=== PATIENT | female | born 1995 | race Caucasian/White ===

== ENCOUNTER 2016-06-13 09:32 | Inpatient (IN) | payer OTHER ==
[2016-06-13 10:25] VITALS: BMI 17.3
--- NOTE | 2016-06-13 11:23 | HP ---
COWS - Scale Resting Pulse: 1= VT 81-100 Sweatin= Chills/Flushing Restless Observation: 3= Extraneous Movement Pupil Size: 2= Moderately Dilated Bone or Joint Aches: 4=Acute Joint/Muscle Pain Runny Nose/ Eye Tearin= Nasal Congestion GI Upset > 30mins: 1= Stomach Cramp Tremor Observation: 2= Slight Tremor Visible Yawning Observation: 0= None Anxiety or Irritability: 2=Irritable/Anxious Goose Flesh Skin: 0=Smooth Skin COWS Score: 17 Admission ROS S - HPI Chief Complaint: DETOX TX FOR HEROIN DEPENDENCE Allergies/Adverse Reactions: Allergies Allergy/AdvReac Type Severity Reaction Status Date / Time No Known Allergies Allergy Verified 06/13/16 10:35 History of Present Illness: 20 Y/O FEMALE WITH A HX OF HEROIN XANAX AND COCAINE DEPENDENCE SEEKING DETOX TX. BENZO(-) TOXICOLOGY TODAY. Exam Limitations: No Limitations - Ebola screening Have you traveled outside of the country in the last 21 days: No Have you had contact with anyone from an Ebola affected area: No Have you been sick,other than usual withdrawal symptoms: No - Review of Systems Constitutional: Chills, Loss of Appetite, Night Sweats, Changes in sleep, Unintentional Wgt. Loss EENT: reports: Blurred Vision (WEARS GLASSES), Tearing, Nose Congestion Respiratory: reports: No Symptoms reported Cardiac: reports: Lightheadedness, Chest Tightness GI: reports: Constipated, Diarrhea, Nausea, Poor Appetite, Poor Fluid Intake, Vomiting, Abdominal cramping : reports: Burning, Dysuria Musculoskeletal: reports: Back Pain, Joint Pain, Muscle Pain Integumentary: reports: Bruising (IVD INJ SITES ON BOT ELBOWS) Neuro: reports: Headache, Numbness, Seizure (IN THE PAST), Tingling, Tremors Endocrine: reports: No Symptoms Reported Hematology: reports: Anemia (IN THE PAST) Psychiatric: reports: Orientated x3, Anxious (AND PANIC DISORDER), Depressed Other Systems: Reviewed and Negative Patient History - Patient Medical History Hx Anemia: Yes (IN THE PAST) Hx Asthma: No Hx Chronic Obstructive Pulmonary Disease (COPD): No Hx Cancer: No Hx Cardiac Disorders: No Hx Congestive Heart Failure: No Hx Hypertension: No Hx Hypercholesterolemia: No Hx Pacemaker: No HX Cerebrovascular Accident: No Hx Seizures: Yes (drug related seizure once on 12/2015) Hx Dementia: No Hx Diabetes: No Hx Gastrointestinal Disorders: No Hx Liver Disease: No Hx Genitourinary Disorders: No Hx Sexually Transmitted Disorders: No Hx Renal Disease (ESRD): No Hx Thyroid Disease: No Hx Human Immunodeficiency Virus (HIV): No (NEGATIVE HX) Hx Hepatitis C: No Hx Depression: Yes Hx Suicide Attempt: No (DENIES) Hx Bipolar Disorder: No Hx Schizophrenia: No - Patient Surgical History Past Surgical History: Yes Hx Neurologic Surgery: No Hx Cataract Extraction: No Hx Cardiac Surgery: No Hx Lung Surgery: No Hx Breast Surgery: No Hx Breast Biopsy: No Hx Abdominal Surgery: No Hx Appendectomy: No Hx Cholecystectomy: No Hx Genitourinary Surgery: No Hx Section: No Hx Orthopedic Surgery: No Other Surgical History: bilateral inguinal hernia repair at age 7 Anesthesia Reaction: No - PPD History Previous Implant?: Yes Documented Results: Negative w/proof Implanted On Prior [facility] Admission?: Yes Date: 01/06/16 Results: 0 mm PPD to be Administered?: Yes - Reproductive History Patient is a Female of Child Bearing Age (11 -55 yrs old): Yes Last Menstrual Period: 02/21/16 LMP comment: IRREGULAR PERIODS DUE TO DRUG USE Patient : No - Smoking Cessation Smoking history: Current every day smoker Have you smoked in the past 12 months: Yes Aproximately how many cigarettes per day: 10 Cigars Per Day: 0 Hx Chewing Tobacco Use: No Initiated information on smoking cessation: Yes 'Breaking Loose' booklet given: 06/13/16 - Substance & Tx. History Hx Alcohol Use: No (DENIES) Hx Substance Use: Yes (HEROIN/XANAX/COCAINE) Substance Use Type: Cocaine, Heroin, Tranquilizers Hx Substance Use Treatment: Yes ([facility]-DETOX) - Substances Abused Heroin Route: Injection Frequency: Daily Amount used: 15-20 bags Age of first use: 18 Date of Last Use: 06/13/16 Crack Route: Smoking Frequency: Daily Amount used: $20-30 Age of first use: 20 Date of Last Use: 06/12/16 Xanax Route: Oral Frequency: 3-6 times per week Amount used: 4-6 mg. Age of first use: 19 Date of Last Use: 06/10/16 Family Disease History - Family Disease History Family Disease History: Other: Grandparent (GF-HIGH CHOLESTEROL) Admission Physical Exam [facility] - Vital Signs Vital Signs: Vital Signs - 24 hr 06/13/16 10:23 Temperature 96.8 F L Pulse Rate 95 H Respiratory 20 Rate Blood Pressure 95/64 - Physical General Appearance: Yes: Moderate Distress, Thin, Anxious HEENTM: Yes: EOMI, Normocephalic, SYMONE, Pharynx Normal, Nasal Congestion, Rhinorrhea Respiratory: Yes: Chest Non-Tender, Lungs Clear, Normal Breath Sounds, No Respiratory Distress Neck: Yes: Supple, Trachea in good position Breast: Yes: Breast Exam Deferred Cardiology: Yes: Regular Rhythm, Regular Rate, S1, S2 Abdominal: Yes: Normal Bowel Sounds, Non Tender, Soft Genitourinary: Yes: Other (N/C) Back: Yes: Within Normal Limits Musculoskeletal: Yes: full range of Motion, Gait Steady Extremities: Yes: Normal Range of Motion, Non-Tender Neurological: Yes: information broker II-XII NML intact, Fully Oriented, Alert, Motor Strength 5/5 Integumentary: Yes: Dry, Warm, Track [place] (BOTH ELBOWS WITH RECENT IVD INJ ALEMAN-- NO SWELLINGS) Lymphatic: Yes: Within Normal Limits - Diagnostic (1) Opioid dependence with withdrawal Current Visit: Yes Status: Acute (2) Uncomplicated sedative, hypnotic or anxiolytic withdrawal Current Visit: Yes Status: Suspected Comment: TOXICOLOGY NEGATIVE (3) Cocaine dependence, uncomplicated Current Visit: Yes Status: Acute (4) History of seizure Current Visit: No Status: Suspected (5) History of anemia Current Visit: Yes Status: Suspected Cleared for Admission [facility] - Detox or Rehab [facility] Level of Care: Medically Managed Detox Regimen/Protocol: Methadone [facility] Breath Alcohol Content Breath Alcohol Content: 0 Urine Pregancy Test - Result Urine Test Results: Negative- NO Line Present Urine Drug Screen - Results Drug Screen Negative: No Urine Drug Screen Results: KAMRAN-Cocaine, OPI-Opiates
[2016-06-13] MEDS ORDERED: MENTHOL/PHENOL 1 EACH UD MM PRN (11:35)
[2016-06-13] MEDS ORDERED: MAGNESIUM CITRATE 300 ML BOTTLE PO PRN (11:35)
[2016-06-13] MEDS ORDERED: P-EPHED 60MG/TRIPROLIDI 2.5MG TABLET PO PRN (11:35)
[2016-06-13] MEDS ORDERED: guaiFENesin/D-METHORPHAN HB 10 ML UNIT-DOSE CUPS PO PRN (11:35)
[2016-06-13] MEDS ORDERED: MAG HYDROX/AL HYDROX/SIMETH 30 ML UNIT-DOSE CUP PO PRN (11:35)
[2016-06-13] MEDS ORDERED: LOPERAMIDE HCL 2 MG CAPSULE PO PRN (11:35)
[2016-06-13] MEDS ORDERED: METHADONE HCL 10 MG TABLET (FOR DETOX USE ONLY) PO ONE ×2 (14:11→23:00)
--- NOTE | 2016-06-13 14:20 | CONSULT ---
[facility] Psychiatric Consult - Data Date of interview: 06/13/16 Admission source: [facility] Identifying data: This is 20 years old female with no psychiatric hospitalization history intoxicated with;. Heroin, Crack, Xanax, Nicotine Substance Abuse History: - Smoking Cessation. Smoking history: Current every day smoker. Have you smoked in the past 12 months: Yes. Aproximately how many cigarettes per day: 10. Cigars Per Day: 0. Hx Chewing Tobacco Use: No. Initiated information on smoking cessation: Yes. 'Breaking Loose' booklet given : 06/13/16. - Substance & Tx. History. Hx Alcohol Use: No (DENIES). Hx Substance Use: Yes (HEROIN/XANAX/COCAINE). Substance Use Type: Cocaine, Heroin , Tranquilizers. Hx Substance Use Treatment: Yes ([facility]DETOX). - Substances Abused. Heroin. Route: Injection. Frequency: Daily. Amount used: 15-20 bags. Age of first use: 18. Date of Last Use: 06/13/16. Crack. Route: Smoking. Frequency: Daily. Amount used: $20-30. Age of first use: 20. Date of Last Use: 06/12/16. Xanax. Route: Oral. Frequency: 3-6 times per week. Amount used: 4-6 mg. Age of first use: 19. Date of Last Use: 06/10/16 Medical History: Seizure history Psychiatric History: Patient reports history of anxiety, reports traking prior to admission: Gabapentin 600mg po tid with good response, reports insomnia a s well Physical/Sexual Abuse/Trauma History: Denies Additional Comment: Gabapentin 600mg po tid. Vistaril 50mg po prn q4 for anxiety Mental Status Exam - Mental Status Exam Alert and Oriented to: Person Cognitive Function: Fair Patient Appearance: Unkempt Mood: Anxious Affect: Mood Congruent Patient Behavior: Cooperative Speech Pattern: Appropriate Voice Loudness: Normal Thought Process: Goal Oriented Thought Disorder: Being Controlled Hallucinations: Denies Suicidal Ideation: Denies Homicidal Ideation: Denies Insight/Judgement: Fair Sleep: Difficulty falling asleep Appetite: Weight loss Muscle strength/Tone: Normal Gait/Station: Normal Additional Comments: Gabapentin 600mg po tid. Vistaril 50mg po prn q4 for anxiety Psychiatric Findings - Problem List ([place] 1, 2,3) (1) Cocaine dependence, uncomplicated Current Visit: Yes Status: Acute (2) Opioid dependence with withdrawal Current Visit: Yes Status: Acute (3) Anxiety and depression Current Visit: No Status: Chronic (4) MDD (major depressive disorder) Current Visit: No Status: Chronic Comment: By history. (5) Panic disorder Current Visit: No Status: Chronic Comment: By history. - Initial Treatment Plan Initial Treatment Plan: Gabapentin 600mg po tid. Vistaril 50mg po prn q4 for anxiety
[2016-06-13] MEDS: diazePAM 5 MG TABLET PO PRN ×2 (14:32→22:23)
[2016-06-13] MEDS: BACITRACIN 0.9 GM PACKET TP SCH ×2 (14:32→22:22)
[2016-06-13] MEDS: NICOTINE 14 MG/24 HOURS TOPICAL PATCH TD SCH (14:32)
[2016-06-13] MEDS: GABAPENTIN 300 MG CAPSULE (FP) PO SCH ×2 (14:36→22:22)
[2016-06-13 18:44] LABS: HIV 1 & 2 AB NEGATIVE; HIV 1 AGp24 NEGATIVE
[2016-06-13 19:17] LABS: URINE APPEARANCE TURBID; URINE BILIRUBIN NEGATIVE (NEGATIVE); URINE BLOOD NEGATIVE (NEGATIVE); URINE COLOR YELLOW; URINE GLUCOSE (UA) NEGATIVE (NEGATIVE); URINE KETONE TRACE (NEGATIVE); URINE NITRITE NEGATIVE (NEGATIVE); URINE PROTEIN NEGATIVE (NEGATIVE); URINE UROBILINOGEN NEGATIVE E.U./dl (0.2-1.0)
[2016-06-13 19:20] LABS: URINE LEUK ESTERASE 2+ (NEGATIVE)
[2016-06-13] MEDS: hydrOXYzine PAMOATE 50 MG CAPSULE (FP) PO PRN (20:48)
[2016-06-13] MEDS: MAGNESIUM HYDROX 2400MG/30ML ORAL SUSPENSION 30 ML CUP PO PRN (20:48)
[2016-06-13] MEDS: diphenhydrAMINE HCL 50 MG CAPSULE PO PRN (22:22)
[2016-06-13] MEDS: DOXEPIN HCL 50 MG CAPSULE PO SCH (22:23)
[2016-06-13] MEDS: THIAMINE HCL 100 MG TABLET (FP) PO SCH (22:23)
[2016-06-14] MEDS: GABAPENTIN 300 MG CAPSULE (FP) PO SCH ×3 (05:37→22:33)
[2016-06-14] MEDS: diazePAM 5 MG TABLET PO PRN ×2 (05:38→15:07)
[2016-06-14 09:44] LABS: MCH 26.7 pg (25.7-33.7); MCHC 32.8 g/dl (32.0-36.0); MEAN CELL VOLUME 81.3 fl (80-96); MEAN PLT VOLUME 8.1 fl (7.5-11.1); PLATELET COUNT 242 K/MM3 (134-434); RDW 13.6 % (11.6-15.6); WHITE BLOOD COUNT 6.2 K/mm3 (4.0-10.0)
[2016-06-14] MEDS ORDERED: METHADONE HCL 10 MG TABLET (FOR DETOX USE ONLY) PO ONE (10:00)
[2016-06-14] MEDS: BACITRACIN 0.9 GM PACKET TP SCH ×2 (10:29→22:32)
[2016-06-14] MEDS: PRENATAL VITAMINS W/ FOLIC ACID TABLET (FP) PO SCH (10:29)
[2016-06-14] MEDS: NICOTINE 14 MG/24 HOURS TOPICAL PATCH TD SCH (10:30)
[2016-06-14 10:32] LABS: ALBUMIN 3.8 g/dl (3.4-5.0); ALK PHOS 72 U/L (45-117); ANION GAP 10 (8-16); BILIRUBIN,TOTAL 0.5 mg/dL (0.2-1.0); CALCIUM 9.4 mg/dL (8.5-10.1); CO2 29 mmol/L (21-32); CREATININE 0.8 mg/dL (0.55-1.02); GLUCOSE,RANDOM 86 mg/dL (74-106); SGOT/AST 16 U/L (15-37); SGPT/ALT 21 U/L (12-78); TOT PROT 7.3 g/dl (6.4-8.2)
[2016-06-14] MEDS: hydrOXYzine PAMOATE 50 MG CAPSULE (FP) PO PRN (10:32)
[2016-06-14] MEDS: NICOTINE POLACRILEX 2 MG GUM BUC PRN (10:32)
--- NOTE | 2016-06-14 10:53 | PN ---
S CIWA - CIWA Score Nausea/Vomitin Muscle Tremors: 2 Anxiety: 2 Agitation: 2 Paroxysmal Sweats: 3 Orientation: 0-Oriented Tacttile Disturbances: 2-Mild Itch/Numbness/Burn Auditory Disturbances: 0-None Visual Disturbances: 0-None Headache: 0-None Present CIWA-Ar Total Score: 13 S Progress Note (SOAP) Subjective: INTERRUPTED SLEEP, SWEATS, TIRED, CRAMPS, BODYACHES Objective: 06/14/16 10:52 Vital Signs Temperature 97.7 F 06/14/16 06:11 Pulse Rate 81 06/14/16 06:11 Respiratory Rate 16 06/14/16 06:11 Blood Pressure 110/60 06/14/16 06:11 O2 Sat by Pulse Oximetry (%) Laboratory Tests 06/13/16 06/13/16 06/14/16 12:00 15:00 06:00 WBC 6.2 RBC 4.70 Hgb 12.5 Hct 38.2 MCV 81.3 MCHC 32.8 RDW 13.6 D Plt Count 242 MPV 8.1 Sodium Potassium Chloride Carbon Dioxide Anion Gap BUN Creatinine Creat Clearance w eGFR Random Glucose Calcium Total Bilirubin AST ALT Alkaline Phosphatase Total Protein Albumin Urine Color Yellow Urine Appearance Turbid Urine pH 7.0 Ur Specific [place] 1.015 Urine Protein Negative Urine Glucose (UA) Negative Urine Ketones Trace H Urine Blood Negative Urine Nitrite Negative Urine Bilirubin Negative Urine Urobilinogen Negative Ur Leukocyte Esterase 2+ H HIV 1&2 Antibody Screen Negative HIV P24 Antigen Negative 06/14/16 06:00 WBC RBC Hgb Hct MCV MCHC RDW Plt Count MPV Sodium 142 Potassium 4.0 Chloride 103 Carbon Dioxide 29 Anion Gap 10 BUN 7 Creatinine 0.8 D Creat Clearance w eGFR > 60 Random Glucose 86 Calcium 9.4 Total Bilirubin 0.5 D AST 16 ALT 21 Alkaline Phosphatase 72 Total Protein 7.3 Albumin 3.8 Urine Color Urine Appearance Urine pH Ur Specific [place] Urine Protein Urine Glucose (UA) Urine Ketones Urine Blood Urine Nitrite Urine Bilirubin Urine Urobilinogen Ur Leukocyte Esterase HIV 1&2 Antibody Screen HIV P24 Antigen PT AOX3 IN NAD AMBULATING Assessment: 06/14/16 10:52 WITHDRAWAL SX;S . Plan: CONT. DETOX INCREASE FLUIDS FLEXERIL 10MG TID/PRN
--- NOTE | 2016-06-14 11:23 | EKG ---
Test Reason : Blood Pressure : / mmHG Vent. Rate : 074 BPM Atrial Rate : 074 BPM P-R Int : 130 ms QRS Dur : 086 ms QT Int : 390 ms P-R-T Axes : 022 080 039 degrees QTc Int : 432 ms NORMAL SINUS RHYTHM WITH SINUS ARRHYTHMIA NORMAL ECG NO PREVIOUS ECGS AVAILABLE Confirmed by KORY TAY, EDIE ([id number]) on 06/14/2016 11:22:47 AM Referred By: Confirmed By:EDIE HORN MD
[2016-06-14 14:48] LABS: URINE BACTERIA RARE /hpf (NEGATIVE)
[2016-06-14 14:49] LABS: URINE MUCUS RARE; YEAST MANY
[2016-06-14] MEDS: MAGNESIUM HYDROX 2400MG/30ML ORAL SUSPENSION 30 ML CUP PO PRN (15:08)
[2016-06-14] MEDS: DOXEPIN HCL 50 MG CAPSULE PO SCH (22:33)
[2016-06-14] MEDS: diphenhydrAMINE HCL 50 MG CAPSULE PO PRN (22:33)
[2016-06-14] MEDS: THIAMINE HCL 100 MG TABLET (FP) PO SCH (22:33)
[2016-06-15] MEDS: GABAPENTIN 300 MG CAPSULE (FP) PO SCH ×3 (05:29→22:08)
[2016-06-15] MEDS: diazePAM 5 MG TABLET PO PRN ×3 (05:30→22:09)
[2016-06-15] MEDS ORDERED: METHADONE HCL 5 MG TABLET (FOR DETOX USE ONLY) PO ONE (10:00)
[2016-06-15] MEDS ORDERED: SODIUM CHLORIDE NASAL SPRAY 44 ML BOTTLE NS PRN (10:18)
--- NOTE | 2016-06-15 10:27 | PN ---
[id number] [id number] Restless Observation: 0= Sits Still Pupil Size: 0= Normal to Room Light Bone or Joint Aches: 2= Severe Diffuse Aches Runny Nose/ Eye Tearin= Runny Nose/Eyes GI Upset > 30mins: 1= Stomach Cramp Tremor Observation of Outstretched Hands: 2= Slight Tremor Visible Yawning Observation: 1= 1-2x During Session Anxiety or Irritability: 2=Irritable/Anxious Goose Flesh Skin: 0=Smooth Skin COWS Score: 15 BHS Progress Note (SOAP) Subjective: tachycardia sweats interrupted sleep agitation nasal congestion dizzy no chest pain, no SOB Objective: 06/15/16 10:28 Vital Signs Temperature 98.0 F 06/15/16 10:00 Pulse Rate 105 H 06/15/16 10:00 Respiratory Rate 18 06/15/16 10:00 Blood Pressure 112/66 06/15/16 10:00 O2 Sat by Pulse Oximetry (%) Laboratory Tests 06/13/16 06/13/16 06/14/16 12:00 15:00 06:00 WBC 6.2 RBC 4.70 Hgb 12.5 Hct 38.2 MCV 81.3 MCHC 32.8 RDW 13.6 D Plt Count 242 MPV 8.1 Sodium Potassium Chloride Carbon Dioxide Anion Gap BUN Creatinine Creat Clearance w eGFR Random Glucose Calcium Total Bilirubin AST ALT Alkaline Phosphatase Total Protein Albumin Urine Color Yellow Urine Appearance Turbid Urine pH 7.0 Ur Specific [place] 1.015 Urine Protein Negative Urine Glucose (UA) Negative Urine Ketones Trace H Urine Blood Negative Urine Nitrite Negative Urine Bilirubin Negative Urine Urobilinogen Negative Ur Leukocyte Esterase 2+ H Ur Epithelial Cells Few Urine Bacteria Rare Urine Mucus Rare Urine Yeast Many RPR Titer HIV 1&2 Antibody Screen Negative HIV P24 Antigen Negative 06/14/16 06/14/16 06:00 06:00 WBC RBC Hgb Hct MCV MCHC RDW Plt Count MPV Sodium 142 Potassium 4.0 Chloride 103 Carbon Dioxide 29 Anion Gap 10 BUN 7 Creatinine 0.8 D Creat Clearance w eGFR > 60 Random Glucose 86 Calcium 9.4 Total Bilirubin 0.5 D AST 16 ALT 21 Alkaline Phosphatase 72 Total Protein 7.3 Albumin 3.8 Urine Color Urine Appearance Urine pH Ur Specific [place] Urine Protein Urine Glucose (UA) Urine Ketones Urine Blood Urine Nitrite Urine Bilirubin Urine Urobilinogen Ur Leukocyte Esterase Ur Epithelial Cells Urine Bacteria Urine Mucus Urine Yeast RPR Titer Nonreactive HIV 1&2 Antibody Screen HIV P24 Antigen awake/alert ambulating monitor HR EKG repeated Assessment: 06/15/16 10:32 withdrawals sx tachycardia EKG repeated result show sinus tachy otherwise Normal EKG. Plan: continue detox increase fluids monitor HR
[2016-06-15] MEDS ORDERED: cloNIDine HCL 0.1 MG TABLET PO ONE (10:37)
[2016-06-15] MEDS: BACITRACIN 0.9 GM PACKET TP SCH ×2 (10:51→22:08)
[2016-06-15] MEDS: PRENATAL VITAMINS W/ FOLIC ACID TABLET (FP) PO SCH (10:51)
[2016-06-15] MEDS: NICOTINE 14 MG/24 HOURS TOPICAL PATCH TD SCH (10:52)
[2016-06-15] MEDS: hydrOXYzine PAMOATE 50 MG CAPSULE (FP) PO PRN (13:50)
[2016-06-15] MEDS: NICOTINE POLACRILEX 2 MG GUM BUC PRN (13:52)
[2016-06-15] MEDS ORDERED: cloNIDine HCL 0.1 MG TABLET PO SCH (22:00)
[2016-06-15] MEDS: DOXEPIN HCL 50 MG CAPSULE PO SCH (22:08)
[2016-06-15] MEDS: THIAMINE HCL 100 MG TABLET (FP) PO SCH (22:08)
[2016-06-15] MEDS: IBUPROFEN 400 MG TABLET (FP) PO PRN (22:38)
[2016-06-15] MEDS: CYCLOBENZAPRINE HCL 10 MG TABLET (FP) PO PRN (22:38)
[2016-06-15] MEDS: diphenhydrAMINE HCL 50 MG CAPSULE PO PRN (22:38)
[2016-06-15] MEDS: ACETAMINOPHEN 325 MG TABLET (FP) PO PRN (23:12)
[2016-06-16] MEDS: diazePAM 5 MG TABLET PO PRN (04:59)
[2016-06-16] MEDS: CYCLOBENZAPRINE HCL 10 MG TABLET (FP) PO PRN ×2 (05:00→18:14)
[2016-06-16] MEDS: IBUPROFEN 400 MG TABLET (FP) PO PRN (05:00)
[2016-06-16] MEDS: GABAPENTIN 300 MG CAPSULE (FP) PO SCH (05:55)
[2016-06-16] MEDS: ACETAMINOPHEN 325 MG TABLET (FP) PO PRN (06:08)
[2016-06-16] MEDS: hydrOXYzine PAMOATE 50 MG CAPSULE (FP) PO PRN ×2 (06:08→18:14)
[2016-06-16] MEDS ORDERED: METHADONE HCL 5 MG TABLET (FOR DETOX USE ONLY) PO ONE (10:00)
--- NOTE | 2016-06-16 10:50 | PN ---
[facility] Progress Note (SOAP) Subjective: sweats irritable agitation I just want to be left alone Objective: 06/16/16 10:49 Vital Signs Temperature 97.9 F 06/16/16 10:37 Pulse Rate 110 H 06/16/16 10:37 Respiratory Rate 18 06/16/16 10:37 Blood Pressure 81/54 06/16/16 10:37 O2 Sat by Pulse Oximetry (%) awake/alert ambulating no acute distress Assessment: 06/16/16 10:50 withdrawal sx Plan: continue detox increase fluids
[2016-06-16] MEDS: BACITRACIN 0.9 GM PACKET TP SCH (11:13)
[2016-06-16] MEDS: PRENATAL VITAMINS W/ FOLIC ACID TABLET (FP) PO SCH (11:13)
[2016-06-16] MEDS: NICOTINE 14 MG/24 HOURS TOPICAL PATCH TD SCH (11:13)
--- NOTE | 2016-06-16 11:57 | PN ---
Psychiatric Progress Note Vital Signs: Vital Signs Period Temp Pulse Resp BP Sys/Peres Pulse Ox Last 24 Hr 96.8 F-97.9 F 97-110 16-20 81-112/54-72 Date of Session: 06/16/16 Chief Complaint:: As per nursing report patient is oversedated HPI: Patient found in bed, slow rate and low volume speech, did get her breakfast. Oriented to md and location, following orders Current Medications: Active Medications Generic Name Dose Route Start Last Admin Trade Name Freq PRN Reason Stop Dose Admin Acetaminophen 650 mg 06/13/16 11:35 06/16/16 06:08 Tylenol - PO 650 mg Q4H PRN Administration FEVER OR PAIN Al Hydroxide/Mg Hydroxide 30 ml 06/13/16 11:35 Mylanta Oral Suspension - PO Q6H PRN DYSPEPSIA Bacitracin 0.9 gm 06/13/16 12:49 06/16/16 11:13 Bacitracin - TP Not Given BID CAYDEN Cyclobenzaprine HCl 10 mg 06/14/16 10:54 06/16/16 05:00 Flexeril - PO 10 mg TID PRN Administration MUSCLE SPASMS Diazepam 10 mg 06/13/16 13:57 06/16/16 04:59 Valium - PO 06/16/16 13:56 10 mg Q4H PRN Administration WITHDRAWAL(CONT SUBST) Diphenhydramine HCl 50 mg 06/13/16 11:35 06/15/16 22:38 Benadryl - PO 50 mg HSMR1 PRN Administration INSOMNIA Doxepin HCl 50 mg 06/13/16 22:00 06/15/16 22:08 Sinequan - PO 50 mg HS CAYDEN Administration Eucalyptus/Menthol/Phenol/Sorbitol 1 each 06/13/16 11:35 Cepastat Lozenge - MM Q4H PRN SORE THROAT Gabapentin 300 mg 06/16/16 14:00 Neurontin - PO TID CAYDEN Guaifenesin 10 ml 06/13/16 11:35 Robitussin Dm - PO Q6H PRN COUGH Hydroxyzine Pamoate 50 mg 06/13/16 14:29 06/16/16 06:08 Vistaril - PO 50 mg Q4H PRN Administration FOR ITCHING Ibuprofen 400 mg 06/13/16 11:35 06/16/16 05:00 Motrin - PO 400 mg Q6H PRN Administration SEVERE PAIN Loperamide HCl 4 mg 06/13/16 11:35 Imodium - PO Q6H PRN DIARRHEA Magnesium Citrate 300 ml 06/13/16 11:35 Citroma - PO Q48H PRN CONSTIPATION Magnesium Hydroxide 30 ml 06/13/16 11:35 06/14/16 15:08 Milk Of Magnesia - PO 30 ml DAILY PRN Administration CONSTIPATION Methadone HCl 10 mg 06/17/16 10:00 Dolophine - PO 06/17/16 10:01 ONCE ONE Methadone HCl 5 mg 06/18/16 06:00 Dolophine - PO 06/18/16 06:01 ONCE@0600 ONE Nicotine 14 mg 06/13/16 14:00 06/16/16 11:13 Nicoderm Patch - TD Not Given DAILY CAYDEN Nicotine Polacrilex 2 mg 06/13/16 13:58 06/15/16 13:52 Nicorette Gum - BUC 2 mg Q2H PRN Administration NICOTINE REPLACEMENT RX Multivit/Folic Acid/Iron 1 tab 06/14/16 10:00 06/16/16 11:13 Vitamins (Sjr) - PO Not Given DAILY CAYDEN Pseudoephedrine/Triprolidine 1 combo 06/13/16 11:35 Actifed - PO TID PRN NASAL CONGESTION Sodium Chloride 2 spray 06/15/16 10:18 [place] Nasal [place] - NS TID PRN NASAL CONGESTION Thiamine HCl 100 mg 06/13/16 22:00 06/15/16 22:08 Vitamin B1 - PO 100 mg HS CAYDEN Administration Medication(s) Change(s): Gabapentin 600mg po tid to d/c. Start Gabapentin 300mg po tid Mental Status Exam - Mental Status Exam Alert and Oriented to: Person Cognitive Function: Fair Patient Appearance: Unkempt Mood: Sad Affect: Flat Patient Behavior: Sedated Speech Pattern: Delayed Voice Loudness: Moderately Soft/Quiet Thought Process: Circumstantial Thought Disorder: Being Controlled Hallucinations: Denies Suicidal Ideation: Denies Homicidal Ideation: Denies Insight/Judgement: Fair Sleep: Difficulty falling asleep Appetite: Weight loss Muscle strength/Tone: Moderate Hypotonicity Gait/Station: Shuffling Additional Comments: Gabapentin 300mg po tid Psychiatric Treatment Plan - Problem List (1) Cocaine dependence, uncomplicated Current Visit: Yes (2) Opioid dependence with withdrawal Current Visit: Yes (3) Anxiety and depression Current Visit: No (4) MDD (major depressive disorder) Current Visit: No Comment: By history. (5) Panic disorder Current Visit: No Comment: By history. Initial treatment plan: Gabapentin 300mg po tid
--- NOTE | 2016-06-16 12:50 | EKG ---
Test Reason : Blood Pressure : / mmHG Vent. Rate : 110 BPM Atrial Rate : 110 BPM P-R Int : 148 ms QRS Dur : 088 ms QT Int : 342 ms P-R-T Axes : 052 074 043 degrees QTc Int : 462 ms SINUS TACHYCARDIA CANNOT RULE OUT ANTERIOR INFARCT , AGE UNDETERMINED ABNORMAL ECG WHEN COMPARED WITH ECG OF 13-JUN-2016 12:34, VENT. RATE HAS INCREASED BY 36 BPM Confirmed by SALOMÓN TAY, MARIA A ([id number]) on 06/16/2016 12:50:34 PM Referred By: Confirmed By:MARIA A LORENZANA MD
[2016-06-16] MEDS ORDERED: GABAPENTIN 300 MG CAPSULE (FP) PO SCH (14:00)
[2016-06-16 17:45] VITALS: BP 97/64; PULSE 95; TEMP 95.5
--- NOTE | 2016-06-16 23:23 | PN ---
S Progress Note Note: INFORMED CLIENT SIGNED OUT AMA. NO LONGER WANTS TO CONTINUE TXMENT.SEEKING MORE METHADONE.
--- NOTE | 2016-06-16 23:26 | DS ---
[facility] Detox Discharge Summary Admission Date: 06/13/16 Discharge Date: 06/16/16 - History Present History: Cocaine Dependence, Opioid Dependence - Physical Exam Results Vital Signs: Vital Signs Temperature 95.5 F L 06/16/16 17:44 Pulse Rate 95 H 06/16/16 17:44 Respiratory Rate 18 06/16/16 17:44 Blood Pressure 97/64 06/16/16 17:44 O2 Sat by Pulse Oximetry (%) Pertinent Admission Physical Exam Findings: WITHDRAWAL SX'S - Medication Discharge Medications: Ambulatory Orders Doxepin HCl [Sinequan -] 50 mg PO HS #30 cap 06/13/16 Gabapentin [Neurontin -] 600 mg PO TID #90 cap 06/13/16 Hydroxyzine Pamoate [Vistaril -] 50 mg PO Q4H PRN #90 cap 06/13/16 - Diagnosis (1) Cocaine dependence, uncomplicated Status: Chronic (2) Opioid dependence with withdrawal Status: Chronic (3) Anxiety and depression Status: Chronic (4) MDD (major depressive disorder) Status: Chronic (5) Panic disorder Status: Chronic - AMA Did Patient Leave Against Medical Advice: Yes
[2016-06-17] MEDS ORDERED: METHADONE HCL 10 MG TABLET (FOR DETOX USE ONLY) PO ONE (10:00)
[2016-06-18] MEDS ORDERED: METHADONE HCL 5 MG TABLET (FOR DETOX USE ONLY) PO ONE (06:00)
== END 2016-06-16 21:30 | disposition left against medical advice (07) | DRG 770 ==
LOC: YASAS 09:32 → Y6N 12:45
PROVIDERS: ADMIT Internal Medicine Addiction Medicine; ATTEND Internal Medicine Addiction Medicine
PROC: HZ2ZZZZ Detoxification Services for Substance Abuse Treatment (ICD-10-PCS; principal; 2016-06-13)
DX: F11.23 Opioid dependence with withdrawal (principal); F14.20 Cocaine dependence, uncomplicated; F17.210 Nicotine dependence, cigarettes, uncomplicated; F41.8 Other specified anxiety disorders; F41.0 Panic disorder [episodic paroxysmal anxiety]; R00.0 Tachycardia, unspecified; Z86.69 Personal history of other diseases of the nervous system and sense organs; Z87.09 Personal history of other diseases of the respiratory system
CPT/HCPCS: 36415; 80053; 81003; 81015; 85027; 86593; 87389; 93005; 93010

== ENCOUNTER 2016-10-10 09:47 | Inpatient (IN) | payer OTHER ==
[2016-10-10 11:22] VITALS: BMI 17.7
[2016-10-10] MEDS ORDERED: guaiFENesin/D-METHORPHAN HB 10 ML UNIT-DOSE CUPS PO PRN (14:11)
[2016-10-10] MEDS ORDERED: MAGNESIUM CITRATE 300 ML BOTTLE PO PRN (14:11)
[2016-10-10] MEDS ORDERED: diphenhydrAMINE HCL 50 MG CAPSULE PO PRN (14:11)
[2016-10-10] MEDS ORDERED: IBUPROFEN 400 MG TABLET (FP) PO PRN (14:11)
[2016-10-10] MEDS ORDERED: hydrOXYzine PAMOATE 50 MG CAPSULE (FP) PO PRN (14:11)
[2016-10-10] MEDS ORDERED: ACETAMINOPHEN 325 MG TABLET (FP) PO PRN (14:11)
[2016-10-10] MEDS ORDERED: P-EPHED 60MG/TRIPROLIDI 2.5MG TABLET PO PRN (14:11)
[2016-10-10] MEDS ORDERED: NICOTINE POLACRILEX 2 MG GUM BC PRN (14:11)
[2016-10-10] MEDS ORDERED: MENTHOL/PHENOL 1 EACH UD MM PRN (14:11)
[2016-10-10] MEDS ORDERED: LOPERAMIDE HCL 2 MG CAPSULE PO PRN (14:11)
--- NOTE | 2016-10-10 14:11 | HP ---
COWS - Scale Resting Pulse: 2= [place] 101-120 Sweatin=Flushed/Facial Moisture Restless Observation: 1= Difficult to Sit Still Pupil Size: 1= Pupils >than Normal Bone or Joint Aches: 2= Severe Diffuse Aches Runny Nose/ Eye Tearin= Runny Nose/Eyes GI Upset > 30mins: 2= Nausea/Diarrhea Tremor Observation: 2= Slight Tremor Visible Yawning Observation: 1= 1-2x During Session Anxiety or Irritability: 2=Irritable/Anxious Goose Flesh Skin: 3=Piloerection COWS Score: 20 CIWA Score - CIWA Score Nausea/Vomitin Muscle Tremors: 4-Moderate,w/Arms Extend Anxiety: 4-Mod. Anxious/Guarded Agitation: 4-Moderately Restless Paroxysmal Sweats: 3 Orientation: 0-Oriented Tacttile Disturbances: 2-Mild Itch/Numbness/Burn Auditory Disturbances: 0-None Visual Disturbances: 0-None Headache: 2-Mild CIWA-Ar Total Score: 22 Admission ROS S - HPI Chief Complaint: heorin and benzodiazepine withdrjazzy sx would like inpatient detoxification with methadone and valium Allergies/Adverse Reactions: Allergies Allergy/AdvReac Type Severity Reaction Status Date / Time No Known Allergies Allergy Verified 10/10/16 12:29 History of Present Illness: 20 yo f with h/o opioid and benzodiazepine dependence, IDU, smoking crack cocaine daily, nicotine depenndence <0/day [facility], [facility], [facility]nao[facility], no h/o suicide attempts in past. no h/o seizures, no h/o DTS, no h/o intubation in past. reports withdrwal sx when she does nto used listed below in ROS. first started using heroin age 15, started marijuana and alcohol age 15 but not using them now. IDU x 9 months. no h/o OD reported. Exam Limitations: No Limitations - Ebola screening Have you traveled outside of the country in the last 21 days: No (N) Have you had contact with anyone from an Ebola affected area: No Have you been sick,other than usual withdrawal symptoms: No Do you have a fever: No - Review of Systems Constitutional: Chills, Diaphoresis, Unintentional Wgt. Loss EENT: reports: Nose Congestion Cardiac: reports: No Symptoms Reported GI: reports: Constipated, Nausea, Poor Appetite, Poor Fluid Intake, Indigestion , Abdominal cramping : reports: Dysuria, Discharge Musculoskeletal: reports: Back Pain, Joint Pain, Muscle Pain, Neck Pain ( withdrawal sx) Integumentary: reports: Flushing, Sweating Neuro: reports: Headache, Numbness, Paresthesia, Tingling, Tremors, Weakness Endocrine: reports: No Symptoms Reported Hematology: reports: No Symptoms Reported Psychiatric: reports: Judgement Intact, Mood/Affect Appropiate, Orientated x3, Anxious, Depressed Other Systems: Reviewed and Negative Patient History - Patient Medical History Hx Anemia: Yes (IN THE PAST) Hx Asthma: No Hx Chronic Obstructive Pulmonary Disease (COPD): No Hx Cancer: No Hx Cardiac Disorders: No Hx Congestive Heart Failure: No Hx Hypertension: No Hx Hypercholesterolemia: No Hx Pacemaker: No HX Cerebrovascular Accident: No Hx Seizures: No Hx Dementia: No Hx Diabetes: No Hx Gastrointestinal Disorders: No Hx Liver Disease: No Hx Genitourinary Disorders: No Hx Sexually Transmitted Disorders: No Hx Renal Disease (ESRD): No Hx Thyroid Disease: No Hx Human Immunodeficiency Virus (HIV): No (NEGATIVE HX) Hx Hepatitis C: No Hx Depression: Yes Hx Suicide Attempt: No Hx Bipolar Disorder: No Hx Schizophrenia: No - Patient Surgical History Past Surgical History: Yes Hx Neurologic Surgery: No Hx Cataract Extraction: No Hx Cardiac Surgery: No Hx Lung Surgery: No Hx Breast Surgery: No Hx Breast Biopsy: No Hx Abdominal Surgery: No Hx Appendectomy: No Hx Cholecystectomy: No Hx Genitourinary Surgery: No Hx Section: No Hx Orthopedic Surgery: No Other Surgical History: bilateral inguinal hernia repair at age 7 Anesthesia Reaction: No - PPD History Previous Implant?: Yes Documented Results: Negative w/proof Implanted On Prior [facility] Admission?: Yes Date: 01/06/16 Results: 0 mm - Reproductive History Patient is a Female of Child Bearing Age (11 -55 yrs old): Yes Last Menstrual Period: 09/10/16 Patient : No - Smoking Cessation Smoking history: Current every day smoker Have you smoked in the past 12 months: Yes Aproximately how many cigarettes per day: 10 If you are a former smoker, when did you quit?: 11 months ago Cigars Per Day: 0 Hx Chewing Tobacco Use: No Initiated information on smoking cessation: Yes 'Breaking Loose' booklet given: 10/10/16 - Substance & Tx. History Hx Alcohol Use: No Hx Substance Use: Yes Substance Use Type: Heroin, Prescribed, Tranquilizers Hx Substance Use Treatment: Yes ([facility] detox and rehab in past) - Substances Abused Heroin Route: Injection Frequency: Daily Amount used: 8 BAGS Age of first use: 18 Date of Last Use: 10/10/16 Crack Route: Smoking Frequency: Daily Amount used: $5 Age of first use: 20 Date of Last Use: 10/09/16 Benzodiazepine (Klonopin) Route: Oral Frequency: Daily Amount used: 4mg Age of first use: 19 Date of Last Use: 10/10/16 Family Disease History - Family Disease History Family Disease History: Other: Grandparent (GF-HIGH CHOLESTEROL), Father ( polysubstance use), Mother (polysubstance use) Admission Physical Exam S - Vital Signs Vital Signs: Vital Signs - 24 hr 10/10/16 11:20 Temperature 97.2 F L Pulse Rate 112 H Respiratory 16 Rate Blood Pressure 100/67 - Physical General Appearance: Yes: Nourished, Appropriately Dressed, Disheveled, Mild Distress, Thin, Tremorous, Irritable, Sweating, Anxious HEENTM: Yes: EOMI, Hearing grossly Normal, Normal ENT Inspection, Normocephalic , Normal Voice, SYMONE, Pharynx Normal, Nasal Congestion, Rhinorrhea Respiratory: Yes: Within Normal Limits, Chest Non-Tender, Lungs Clear, Normal Breath Sounds, No Respiratory Distress, No Accessory Muscle Use Neck: Yes: Within Normal Limits, No masses,lesions,Nodules, Supple, Trachea in good position Breast: Yes: Breast Exam Deferred Cardiology: Yes: Within Normal Limits, Regular Rhythm, Regular Rate, S1, S2 Abdominal: Yes: Normal Bowel Sounds, Non Tender, Flat, Soft, Increased Bowel Sounds Genitourinary: Yes: Within Normal Limits Back: Yes: Within Normal Limits, Normal Inspection Musculoskeletal: Yes: full range of Motion, Gait Steady Extremities: Yes: Normal Capillary Refill, Normal Inspection, Normal Range of Motion, Non-Tender Neurological: Yes: senior partner II-XII NML intact, Fully Oriented, Alert, Motor Strength 5/5, Normal Response, Depressed Affect Integumentary: Yes: Normal Color, Warm, Moist - Addiitonal Findings: withdrawal sx - Diagnostic (1) Anxiety and depression Current Visit: Yes Status: Acute (2) Cocaine dependence, uncomplicated Current Visit: Yes Status: Chronic (3) MDD (major depressive disorder) Current Visit: Yes Status: Chronic Comment: By history. (4) Opioid dependence with withdrawal Current Visit: Yes Status: Chronic (5) Panic disorder Current Visit: Yes Status: Chronic Comment: By history. (6) Uncomplicated sedative, hypnotic or anxiolytic withdrawal Current Visit: No Status: Suspected Comment: TOXICOLOGY NEGATIVE Cleared for Admission [facility] - Detox or Rehab [facility] Level of Care: Medically Managed Detox Regimen/Protocol: Methadone/Valium [facility] Breath Alcohol Content Breath Alcohol Content: 0 Urine Pregancy Test - Result Urine Test Results: Negative- NO Line Present Urine Drug Screen - Results Drug Screen Negative: No Urine Drug Screen Results: KAMRAN-Cocaine, OPI-Opiates, TCA-Tricyclic Antidepress
[2016-10-10] MEDS ORDERED: METHADONE HCL 10 MG TABLET (FOR DETOX USE ONLY) PO ONE ×2 (15:00→23:00)
[2016-10-10] MEDS ORDERED: diazePAM 5 MG TABLET PO ONE (15:00)
[2016-10-10] MEDS: CYCLOBENZAPRINE HCL 10 MG TABLET (FP) PO SCH ×2 (15:11→22:22)
[2016-10-10] MEDS: MAGNESIUM HYDROX 2400MG/30ML ORAL SUSPENSION 30 ML CUP PO PRN (15:16)
[2016-10-10] MEDS: GABAPENTIN 100 MG CAPSULE (FP) PO SCH ×2 (15:16→22:22)
[2016-10-10] MEDS: NICOTINE 14 MG/24 HOURS TOPICAL PATCH TD SCH (15:19)
[2016-10-10] MEDS: diazePAM 5 MG TABLET PO PRN (18:06)
[2016-10-10] MEDS: MAGNESIUM CL 64 MG TABLET.SA PO SCH (18:06)
[2016-10-10 18:35] LABS: URINE APPEARANCE CLOUDY; URINE BILIRUBIN NEGATIVE (NEGATIVE); URINE BLOOD NEGATIVE (NEGATIVE); URINE COLOR YELLOW; URINE GLUCOSE (UA) NEGATIVE (NEGATIVE); URINE KETONE NEGATIVE (NEGATIVE); URINE NITRITE NEGATIVE (NEGATIVE); URINE PROTEIN NEGATIVE (NEGATIVE); URINE UROBILINOGEN NEGATIVE mg/dL (0.2-1.0)
[2016-10-10 18:38] LABS: URINE LEUK ESTERASE 1+ (NEGATIVE)
[2016-10-10 18:45] LABS: URINE MUCUS FEW; URINE RBC 1 /hpf (0-3); URINE WBC 6 /hpf (3-5)
[2016-10-10] MEDS: diazePAM 5 MG TABLET PO SCH (22:22)
[2016-10-10] MEDS: THIAMINE HCL 100 MG TABLET (FP) PO SCH (22:22)
[2016-10-10] MEDS: cloNIDine HCL 0.1 MG TABLET PO SCH (22:22)
[2016-10-10] MEDS: ZOLPIDEM TARTRATE 5 MG TABLET PO PRN (22:22)
[2016-10-10] MEDS: NAPROXEN 500 MG TABLET (FP) PO SCH (22:22)
[2016-10-11] MEDS: GABAPENTIN 100 MG CAPSULE (FP) PO SCH ×3 (06:39→22:13)
[2016-10-11] MEDS: CYCLOBENZAPRINE HCL 10 MG TABLET (FP) PO SCH (06:39)
[2016-10-11] MEDS: diazePAM 5 MG TABLET PO SCH ×3 (06:39→22:13)
[2016-10-11] MEDS ORDERED: METHADONE HCL 10 MG TABLET (FOR DETOX USE ONLY) PO SCH (10:00)
[2016-10-11 10:14] LABS: MCH 26.8 pg (25.7-33.7); MEAN CELL VOLUME 81.2 fl (80-96); PLATELET COUNT 196 K/MM3 (134-434); RDW 12.7 % (11.6-15.6)
[2016-10-11] MEDS: NAPROXEN 500 MG TABLET (FP) PO SCH ×2 (10:38→22:13)
[2016-10-11] MEDS: MAGNESIUM CL 64 MG TABLET.SA PO SCH (10:38)
[2016-10-11] MEDS: cloNIDine HCL 0.1 MG TABLET PO SCH (10:38)
[2016-10-11] MEDS: PRENATAL VITAMINS W/ FOLIC ACID TABLET (FP) PO SCH (10:38)
[2016-10-11] MEDS: MAGNESIUM HYDROX 2400MG/30ML ORAL SUSPENSION 30 ML CUP PO PRN (10:40)
[2016-10-11] MEDS: diazePAM 5 MG TABLET PO PRN (10:40)
[2016-10-11] MEDS: NICOTINE 14 MG/24 HOURS TOPICAL PATCH TD SCH (10:41)
[2016-10-11 11:07] LABS: ALBUMIN 3.5 g/dl (3.4-5.0); ALK PHOS 67 U/L (45-117); ANION GAP 8 (8-16); BILIRUBIN,TOTAL 0.4 mg/dL (0.2-1.0); CALCIUM 8.8 mg/dL (8.5-10.1); CO2 28 mmol/L (21-32); CREATININE 0.7 mg/dL (0.55-1.02); GLUCOSE,RANDOM 79 mg/dL (74-106); SGOT/AST 14 U/L (15-37); SGPT/ALT 19 U/L (12-78); TOT PROT 6.5 g/dl (6.4-8.2)
--- NOTE | 2016-10-11 12:32 | PN ---
[facility] CIWA - CIWA Score Nausea/Vomitin-No Nausea/No Vomiting Muscle Tremors: 3 Anxiety: 2 Agitation: 3 Paroxysmal Sweats: 3 Orientation: 0-Oriented Tacttile Disturbances: 0-None Auditory Disturbances: 0-None Visual Disturbances: 0-None Headache: 0-None Present CIWA-Ar Total Score: 11 S COWS - Scale Resting Pulse: 2= [place] 101-120 Sweatin= No chills or Flushing Restless Observation: 1= Difficult to Sit Still Pupil Size: 0= Normal to Room Light Bone or Joint Aches: 2= Severe Diffuse Aches Runny Nose/ Eye Tearin= None GI Upset > 30mins: 0= None Tremor Observation of Outstretched Hands: 2= Slight Tremor Visible Yawning Observation: 2= >3x During Session Anxiety or Irritability: 1=Feels Anxious/Irritable Goose Flesh Skin: 0=Smooth Skin COWS Score: 10 [facility] Progress Note (SOAP) Subjective: agitation sweats little shakes interrupted sleep Objective: 10/11/16 12:32 Vital Signs Temperature 96.8 F L 10/11/16 11:18 Pulse Rate 108 H 10/11/16 11:18 Respiratory Rate 20 10/11/16 11:18 Blood Pressure 90/60 10/11/16 11:18 O2 Sat by Pulse Oximetry (%) Laboratory Tests 10/10/16 10/11/16 10/11/16 15:56 07:00 07:00 WBC 6.0 RBC 4.38 Hgb 11.7 Hct 35.6 MCV 81.2 MCH 26.8 MCHC 33.0 RDW 12.7 Plt Count 196 MPV 8.0 Sodium 139 Potassium 4.2 Chloride 103 Carbon Dioxide 28 Anion Gap 8 BUN 7 Creatinine 0.7 Creat Clearance w eGFR > 60 Random Glucose 79 Calcium 8.8 Total Bilirubin 0.4 AST 14 L ALT 19 Alkaline Phosphatase 67 Total Protein 6.5 Albumin 3.5 Urine Color Yellow Urine Appearance Cloudy Urine pH 5.0 D Ur Specific [place] 1.025 Urine Protein Negative Urine Glucose (UA) Negative Urine Ketones Negative Urine Blood Negative Urine Nitrite Negative Urine Bilirubin Negative Urine Urobilinogen Negative Ur Leukocyte Esterase 1+ H Urine RBC 1 Urine WBC 6 Ur Epithelial Cells Moderate Urine Mucus Few RPR Titer 10/11/16 07:00 WBC RBC Hgb Hct MCV MCH MCHC RDW Plt Count MPV Sodium Potassium Chloride Carbon Dioxide Anion Gap BUN Creatinine Creat Clearance w eGFR Random Glucose Calcium Total Bilirubin AST ALT Alkaline Phosphatase Total Protein Albumin Urine Color Urine Appearance Urine pH Ur Specific [place] Urine Protein Urine Glucose (UA) Urine Ketones Urine Blood Urine Nitrite Urine Bilirubin Urine Urobilinogen Ur Leukocyte Esterase Urine RBC Urine WBC Ur Epithelial Cells Urine Mucus RPR Titer Nonreactive awake/alert ambulating no acute distress Assessment: 10/11/16 12:32 withdrawal sx Plan: continue detox increase fluids
--- NOTE | 2016-10-11 18:25 | CONSULT ---
[facility] Psychiatric Consult - Data Date of interview: 10/11/16 Admission source: [facility] Identifying data: Readmission to [facility] for this 20 y/o female seeking detox treatment on for heroin,cocaine and benzodiazepine dependence.Patient ois single without children,domiciled (lives with her grand father),unemployed and supported by relatives. Substance Abuse History: Confirmed by patient in this interview. Smoking Cessation. Smoking history: Current every day smoker. Have you smoked in the past 12 months: Yes. Aproximately how many cigarettes per day: 10. If you are a former smoker, when did you quit?: 11 months ago. Cigars Per Day: 0. Hx Chewing Tobacco Use: No. Initiated information on smoking cessation: Yes. ' Breaking Loose' booklet given: 10/10/16. - Substance & Tx. History. Hx Alcohol Use: No. Hx Substance Use: Yes. Substance Use Type: Heroin, Prescribed , Tranquilizers. Hx Substance Use Treatment: Yes ([facility] detox and rehab in past). - Substances Abused. Heroin. Route: Injection. Frequency: Daily. Amount used: 8 BAGS. Age of first use: 18. Date of Last Use: 10/10/16. Crack. Route: Smoking. Frequency: Daily. Amount used: $5. Age of first use: 20. Date of Last Use: 10/09/16. Benzodiazepine (Klonopin). Route: Oral. Frequency: Daily. Amount used: 4mg. Age of first use: 19. Date of Last Use: 10/10/16 Medical History: History of anemia and bilateral inguinal herniorraphy. Psychiatric History: No reported history of psychiatric hospitalizations.Ms Alicia used to be managed by a private psychiatrist under the diagnoses of Panic Disorder and MDD.She was maintained on a regimen of effexor ER 75 mg/day + clonazepam 0.5 mg/day.Dropped out of [facility] care months ago.Patient indicates that she has been off psychotropic medications for many months.No history of suicide attempts. Physical/Sexual Abuse/Trauma History: Patient denies. Additional Comment: Urine Drug Screen Results: KAMRAN-Cocaine, OPI-Opiates, TCA- Tricyclic Antidepressant.Noted. Mental Status Exam - Mental Status Exam Alert and Oriented to: Time, Place, Person Cognitive Function: Good Patient Appearance: Unkempt, Disheveled (short stature,frail habitus,petite) Mood: Nervous, Anxious, Irritable Affect: Mood Congruent Patient Behavior: Fatigued, Cooperative Speech Pattern: Clear Voice Loudness: Normal Thought Process: Intact, Goal Oriented Thought Disorder: Not Present Hallucinations: Denies Suicidal Ideation: Denies Homicidal Ideation: Denies Insight/Judgement: Poor Sleep: Fair Appetite: Poor, Weight loss Muscle strength/Tone: Normal Gait/Station: Normal Psychiatric Findings - Problem List ([place] 1, 2,3) (1) Opioid dependence with withdrawal Current Visit: Yes Status: Acute (2) Cocaine dependence, uncomplicated Current Visit: Yes Status: Acute (3) Uncomplicated sedative, hypnotic or anxiolytic withdrawal Current Visit: Yes Status: Suspected Comment: TOXICOLOGY NEGATIVE (4) Nicotine dependence Current Visit: Yes Status: Acute (5) Substance induced mood disorder Current Visit: Yes Status: Acute (6) MDD (major depressive disorder) Current Visit: Yes Status: Chronic Comment: By history. (7) Panic disorder Current Visit: Yes Status: Chronic Comment: By history. - Initial Treatment Plan Initial Treatment Plan: Previous records are reviewed.Noted history of oversedation in the course of detox treatment.Psychoeducation.Detoxification.Observation.
--- NOTE | 2016-10-11 18:32 | EKG ---
Test Reason : Blood Pressure : / mmHG Vent. Rate : 082 BPM Atrial Rate : 082 BPM P-R Int : 154 ms QRS Dur : 090 ms QT Int : 368 ms P-R-T Axes : 050 070 048 degrees QTc Int : 429 ms NORMAL SINUS RHYTHM NORMAL ECG WHEN COMPARED WITH ECG OF 15-JUN-2016 09:29, NO SIGNIFICANT CHANGE WAS FOUND Confirmed by SHAHEED SCHUMACHER MD ([id number]) on 10/11/2016 6:32:28 PM Referred By: Confirmed By:SHAHEED SCHUMACHER MD
[2016-10-11] MEDS: THIAMINE HCL 100 MG TABLET (FP) PO SCH (22:13)
[2016-10-11] MEDS: ZOLPIDEM TARTRATE 5 MG TABLET PO PRN (22:13)
[2016-10-12] MEDS: diazePAM 5 MG TABLET PO PRN ×3 (05:54→17:49)
[2016-10-12] MEDS: GABAPENTIN 100 MG CAPSULE (FP) PO SCH ×3 (05:54→22:27)
[2016-10-12] MEDS ORDERED: METHADONE HCL 5 MG TABLET (FOR DETOX USE ONLY) PO SCH (10:00)
[2016-10-12] MEDS: diazePAM 5 MG TABLET PO SCH ×2 (10:46→22:27)
[2016-10-12] MEDS: NAPROXEN 500 MG TABLET (FP) PO SCH ×2 (10:46→22:27)
[2016-10-12] MEDS: MAGNESIUM CL 64 MG TABLET.SA PO SCH (10:46)
[2016-10-12] MEDS: PRENATAL VITAMINS W/ FOLIC ACID TABLET (FP) PO SCH (10:47)
[2016-10-12] MEDS: NICOTINE 14 MG/24 HOURS TOPICAL PATCH TD SCH (10:48)
--- NOTE | 2016-10-12 11:15 | PN ---
[facility] CIWA - CIWA Score Nausea/Vomitin-No Nausea/No Vomiting Muscle Tremors: 3 Anxiety: 3 Agitation: 3 Paroxysmal Sweats: 2 Orientation: 0-Oriented Tacttile Disturbances: 0-None Auditory Disturbances: 0-None Visual Disturbances: 0-None Headache: 0-None Present CIWA-Ar Total Score: 11 [facility] COWS - Scale Resting Pulse: 2= [place] 101-120 Sweatin= Chills/Flushing Restless Observation: 0= Sits Still Pupil Size: 0= Normal to Room Light Bone or Joint Aches: 2= Severe Diffuse Aches Runny Nose/ Eye Tearin= Nasal Congestion GI Upset > 30mins: 0= None Tremor Observation of Outstretched Hands: 2= Slight Tremor Visible Yawning Observation: 0= None Anxiety or Irritability: 2=Irritable/Anxious Goose Flesh Skin: 0=Smooth Skin COWS Score: 10 [facility] Progress Note (SOAP) Subjective: agitation sweats interrupted sleep i will like my ambien increased Objective: 10/12/16 11:14 Vital Signs Temperature 98.2 F 10/12/16 10:42 Pulse Rate 102 H 10/12/16 10:42 Respiratory Rate 16 10/12/16 10:42 Blood Pressure 114/68 10/12/16 10:42 O2 Sat by Pulse Oximetry (%) Laboratory Tests 10/10/16 10/11/16 10/11/16 15:56 07:00 07:00 WBC 6.0 RBC 4.38 Hgb 11.7 Hct 35.6 MCV 81.2 MCH 26.8 MCHC 33.0 RDW 12.7 Plt Count 196 MPV 8.0 Sodium 139 Potassium 4.2 Chloride 103 Carbon Dioxide 28 Anion Gap 8 BUN 7 Creatinine 0.7 Creat Clearance w eGFR > 60 Random Glucose 79 Calcium 8.8 Total Bilirubin 0.4 AST 14 L ALT 19 Alkaline Phosphatase 67 Total Protein 6.5 Albumin 3.5 Urine Color Yellow Urine Appearance Cloudy Urine pH 5.0 D Ur Specific [place] 1.025 Urine Protein Negative Urine Glucose (UA) Negative Urine Ketones Negative Urine Blood Negative Urine Nitrite Negative Urine Bilirubin Negative Urine Urobilinogen Negative Ur Leukocyte Esterase 1+ H Urine RBC 1 Urine WBC 6 Ur Epithelial Cells Moderate Urine Mucus Few RPR Titer 10/11/16 07:00 WBC RBC Hgb Hct MCV MCH MCHC RDW Plt Count MPV Sodium Potassium Chloride Carbon Dioxide Anion Gap BUN Creatinine Creat Clearance w eGFR Random Glucose Calcium Total Bilirubin AST ALT Alkaline Phosphatase Total Protein Albumin Urine Color Urine Appearance Urine pH Ur Specific [place] Urine Protein Urine Glucose (UA) Urine Ketones Urine Blood Urine Nitrite Urine Bilirubin Urine Urobilinogen Ur Leukocyte Esterase Urine RBC Urine WBC Ur Epithelial Cells Urine Mucus RPR Titer Nonreactive awake/alert ambulating no acute distress Assessment: 10/12/16 11:14 withdrawal sx Plan: continue detox increase fluids psych ordered for ambien change.
[2016-10-12] MEDS: ZOLPIDEM TARTRATE 5 MG TABLET PO PRN (22:27)
[2016-10-12] MEDS: THIAMINE HCL 100 MG TABLET (FP) PO SCH (22:27)
[2016-10-13] MEDS: diazePAM 5 MG TABLET PO PRN ×2 (04:23→12:48)
[2016-10-13] MEDS: GABAPENTIN 100 MG CAPSULE (FP) PO SCH ×3 (07:45→22:32)
[2016-10-13] MEDS ORDERED: METHADONE HCL 10 MG TABLET (FOR DETOX USE ONLY) PO SCH (10:00)
--- NOTE | 2016-10-13 10:55 | PN ---
Psychiatric Progress Note Vital Signs: Vital Signs Period Temp Pulse Resp BP Sys/Peres Pulse Ox Last 24 Hr 96.6 F-98.1 F 69-125 16-19 91-106/61-80 Date of Session: 10/13/16 Chief Complaint:: Insomnia HPI: Patient continues to reports insomnia inspite of taking Ambien 10mg po qhs , reportsm good reponse on Seroquel 100mg po qhs in the past detox protocols Current Medications: Active Medications Generic Name Dose Route Start Last Admin Trade Name Freq PRN Reason Stop Dose Admin Acetaminophen 650 mg 10/10/16 14:11 Tylenol - PO Q4H PRN FEVER OR PAIN Al Hydroxide/Mg Hydroxide 30 ml 10/10/16 14:11 Mylanta Oral Suspension - PO Q6H PRN DYSPEPSIA Diazepam 10 mg 10/10/16 14:11 10/13/16 04:23 Valium - PO 10/13/16 14:11 10 mg Q4H PRN Administration WITHDRAWAL(CONT SUBST) Diazepam 5 mg 10/12/16 10:00 10/12/16 22:27 Valium - PO 10/13/16 22:01 5 mg BID CAYDEN Administration Diazepam 5 mg 10/14/16 10:00 Valium - PO 10/14/16 10:01 DAILY CAYDEN Diphenhydramine HCl 50 mg 10/10/16 14:11 Benadryl - PO HSMR1 PRN INSOMNIA Eucalyptus/Menthol/Phenol/Sorbitol 1 each 10/10/16 14:11 Cepastat Lozenge - MM Q4H PRN SORE THROAT Gabapentin 100 mg 10/10/16 15:00 10/13/16 07:45 Neurontin - PO 100 mg TID CAYDEN Administration Guaifenesin 10 ml 10/10/16 14:11 Robitussin Dm - PO Q6H PRN COUGH Loperamide HCl 4 mg 10/10/16 14:11 Imodium - PO Q6H PRN DIARRHEA Magnesium Chloride 128 mg 10/10/16 16:00 10/12/16 10:46 Slow-Mag - PO 128 mg DAILY CAYDEN Administration Magnesium Citrate 300 ml 10/10/16 14:11 10/12/16 12:50 Citroma - PO 300 ml Q48H PRN Administration CONSTIPATION Magnesium Hydroxide 30 ml 10/10/16 14:11 10/11/16 10:40 Milk Of Magnesia - PO 30 ml DAILY PRN Administration CONSTIPATION Methadone HCl 5 mg 10/14/16 06:00 Dolophine - PO 10/14/16 06:01 DAILY@0600 CAYDEN Naproxen 500 mg 10/10/16 22:00 10/12/16 22:27 Naprosyn - PO 500 mg BID CAYDEN Administration Nicotine 14 mg 10/10/16 15:00 10/12/16 10:48 Nicoderm Patch - TD Not Given DAILY CAYDEN Nicotine Polacrilex 2 mg 10/10/16 14:11 Nicorette Gum - BC Q2H PRN NICOTINE REPLACEMENT RX Multivit/Folic Acid/Iron 1 tab 10/11/16 10:00 10/12/16 10:47 Vitamins (Sjr) - PO 1 tab DAILY CAYDEN Administration Pseudoephedrine/Triprolidine 1 combo 10/10/16 14:11 Actifed - PO TID PRN NASAL CONGESTION Thiamine HCl 100 mg 10/10/16 22:00 10/12/16 22:27 Vitamin B1 - PO 100 mg HS CAYDEN Administration Zolpidem Tartrate 10 mg 10/10/16 14:34 10/12/16 22:27 Ambien - PO 10/13/16 14:33 10 mg HS PRN Administration INSOMNIA Medication(s) Change(s): Seroquel 100mg po qhs Mental Status Exam - Mental Status Exam Alert and Oriented to: Time, Place, Person Cognitive Function: Fair Patient Appearance: Unkempt Mood: Anxious Affect: Mood Congruent Patient Behavior: Cooperative Speech Pattern: Appropriate Voice Loudness: Mildly Soft/Quiet Thought Process: Goal Oriented Thought Disorder: Being Controlled Hallucinations: Denies Suicidal Ideation: Denies Homicidal Ideation: Denies Insight/Judgement: Fair Sleep: Difficulty falling asleep Appetite: Weight loss Muscle strength/Tone: Normal Gait/Station: Normal Additional Comments: Seroquel 100mg po qhs Psychiatric Treatment Plan - Problem List (1) Anxiety and depression Current Visit: Yes (2) Nicotine dependence Current Visit: Yes (3) Substance induced mood disorder Current Visit: Yes (4) Cocaine dependence, uncomplicated Current Visit: Yes (5) MDD (major depressive disorder) Current Visit: Yes Comment: By history. (6) Opioid dependence with withdrawal Current Visit: Yes (7) Panic disorder Current Visit: Yes Comment: By history. (8) Uncomplicated sedative, hypnotic or anxiolytic withdrawal Current Visit: Yes Comment: TOXICOLOGY NEGATIVE Initial treatment plan: Seroquel 100mg po qhs
[2016-10-13] MEDS: MAGNESIUM CL 64 MG TABLET.SA PO SCH (11:07)
[2016-10-13] MEDS: NAPROXEN 500 MG TABLET (FP) PO SCH ×2 (11:07→22:32)
[2016-10-13] MEDS: diazePAM 5 MG TABLET PO SCH ×2 (11:07→22:32)
[2016-10-13] MEDS: PRENATAL VITAMINS W/ FOLIC ACID TABLET (FP) PO SCH (11:07)
[2016-10-13] MEDS: NICOTINE 14 MG/24 HOURS TOPICAL PATCH TD SCH (11:10)
--- NOTE | 2016-10-13 12:37 | PN ---
[facility] Progress Note (SOAP) Subjective: nausea, sweats, interrupted sleep, anxiety, tremors Objective: 10/13/16 12:36 Vital Signs - 24 hr 10/12/16 10/12/16 10/12/16 15:06 17:51 22:22 Temperature 97.3 F L 98.1 F 98.1 F Pulse Rate 95 H 102 H 97 H Respiratory 16 19 18 Rate Blood Pressure 105/65 95/61 106/69 10/13/16 10/13/16 10/13/16 00:30 03:30 06:54 Temperature 97.9 F Pulse Rate 69 Respiratory 18 18 18 Rate Blood Pressure 91/67 10/13/16 10:26 Temperature 96.6 F L Pulse Rate 125 H Respiratory 18 Rate Blood Pressure 103/80 Laboratory Tests 10/10/16 10/11/16 10/11/16 15:56 07:00 07:00 WBC 6.0 RBC 4.38 Hgb 11.7 Hct 35.6 MCV 81.2 MCH 26.8 MCHC 33.0 RDW 12.7 Plt Count 196 MPV 8.0 Sodium 139 Potassium 4.2 Chloride 103 Carbon Dioxide 28 Anion Gap 8 BUN 7 Creatinine 0.7 Creat Clearance w eGFR > 60 Random Glucose 79 Calcium 8.8 Total Bilirubin 0.4 AST 14 L ALT 19 Alkaline Phosphatase 67 Total Protein 6.5 Albumin 3.5 Urine Color Yellow Urine Appearance Cloudy Urine pH 5.0 D Ur Specific [place] 1.025 Urine Protein Negative Urine Glucose (UA) Negative Urine Ketones Negative Urine Blood Negative Urine Nitrite Negative Urine Bilirubin Negative Urine Urobilinogen Negative Ur Leukocyte Esterase 1+ H Urine RBC 1 Urine WBC 6 Ur Epithelial Cells Moderate Urine Mucus Few RPR Titer 10/11/16 07:00 WBC RBC Hgb Hct MCV MCH MCHC RDW Plt Count MPV Sodium Potassium Chloride Carbon Dioxide Anion Gap BUN Creatinine Creat Clearance w eGFR Random Glucose Calcium Total Bilirubin AST ALT Alkaline Phosphatase Total Protein Albumin Urine Color Urine Appearance Urine pH Ur Specific [place] Urine Protein Urine Glucose (UA) Urine Ketones Urine Blood Urine Nitrite Urine Bilirubin Urine Urobilinogen Ur Leukocyte Esterase Urine RBC Urine WBC Ur Epithelial Cells Urine Mucus RPR Titer Nonreactive Assessment: 10/13/16 12:36 withdrawal sx Plan: cont detox, fluids
[2016-10-13] MEDS: MAG HYDROX/AL HYDROX/SIMETH 30 ML UNIT-DOSE CUP PO PRN ×2 (15:13→20:04)
[2016-10-13] MEDS: THIAMINE HCL 100 MG TABLET (FP) PO SCH (22:32)
[2016-10-13] MEDS ORDERED: ZOLPIDEM TARTRATE 5 MG TABLET PO ONE (22:39)
[2016-10-14] MEDS: GABAPENTIN 100 MG CAPSULE (FP) PO SCH ×2 (05:46→14:22)
[2016-10-14] MEDS ORDERED: METHADONE HCL 5 MG TABLET (FOR DETOX USE ONLY) PO SCH (06:00)
--- NOTE | 2016-10-14 08:38 | PN ---
[facility] Progress Note (SOAP) Subjective: nausea, sweats, interrupted sleep, anxiety, tremors, would like to continue methadone detox one more day. Objective: 10/14/16 08:37 Vital Signs - 8 hr 10/14/16 10/14/16 03:30 07:00 Temperature 97.5 F L Pulse Rate 72 Respiratory 18 18 Rate Blood Pressure 90/51 Laboratory Tests 10/10/16 10/11/16 10/11/16 15:56 07:00 07:00 WBC 6.0 RBC 4.38 Hgb 11.7 Hct 35.6 MCV 81.2 MCH 26.8 MCHC 33.0 RDW 12.7 Plt Count 196 MPV 8.0 Sodium 139 Potassium 4.2 Chloride 103 Carbon Dioxide 28 Anion Gap 8 BUN 7 Creatinine 0.7 Creat Clearance w eGFR > 60 Random Glucose 79 Calcium 8.8 Total Bilirubin 0.4 AST 14 L ALT 19 Alkaline Phosphatase 67 Total Protein 6.5 Albumin 3.5 Urine Color Yellow Urine Appearance Cloudy Urine pH 5.0 D Ur Specific [place] 1.025 Urine Protein Negative Urine Glucose (UA) Negative Urine Ketones Negative Urine Blood Negative Urine Nitrite Negative Urine Bilirubin Negative Urine Urobilinogen Negative Ur Leukocyte Esterase 1+ H Urine RBC 1 Urine WBC 6 Ur Epithelial Cells Moderate Urine Mucus Few RPR Titer 10/11/16 07:00 WBC RBC Hgb Hct MCV MCH MCHC RDW Plt Count MPV Sodium Potassium Chloride Carbon Dioxide Anion Gap BUN Creatinine Creat Clearance w eGFR Random Glucose Calcium Total Bilirubin AST ALT Alkaline Phosphatase Total Protein Albumin Urine Color Urine Appearance Urine pH Ur Specific [place] Urine Protein Urine Glucose (UA) Urine Ketones Urine Blood Urine Nitrite Urine Bilirubin Urine Urobilinogen Ur Leukocyte Esterase Urine RBC Urine WBC Ur Epithelial Cells Urine Mucus RPR Titer Nonreactive Assessment: 10/14/16 08:37 withdrawal sx Plan: continue detox, will give an additional 5mg tomorrow and cancel d/c for today.
[2016-10-14] MEDS ORDERED: METHADONE HCL 10 MG TABLET (FOR DETOX USE ONLY) PO SCH (10:00)
[2016-10-14] MEDS ORDERED: diazePAM 5 MG TABLET PO SCH (10:00)
[2016-10-14 10:12] VITALS: BP 111/81; PULSE 92; TEMP 96.7
[2016-10-14] MEDS: PRENATAL VITAMINS W/ FOLIC ACID TABLET (FP) PO SCH (11:04)
[2016-10-14] MEDS: MAGNESIUM CL 64 MG TABLET.SA PO SCH (11:04)
[2016-10-14] MEDS: NAPROXEN 500 MG TABLET (FP) PO SCH (11:04)
[2016-10-14] MEDS: NICOTINE 14 MG/24 HOURS TOPICAL PATCH TD SCH (11:06)
[2016-10-14] MEDS ORDERED: hydrOXYzine PAMOATE 50 MG CAPSULE (FP) PO PRN (12:46)
--- NOTE | 2016-10-14 14:34 | DS ---
[facility] Detox Discharge Summary Admission Date: 10/10/16 Discharge Date: 10/14/16 - History Present History: Cocaine Dependence, Opioid Dependence, Sedative Dependence Pertinent Past History: nioctine dependence, insomnia, anxiety, depression - Physical Exam Results Vital Signs: Vital Signs Temperature 96.7 F L 10/14/16 13:39 Pulse Rate 92 H 10/14/16 13:39 Respiratory Rate 18 10/14/16 13:39 Blood Pressure 111/81 10/14/16 13:39 O2 Sat by Pulse Oximetry (%) Laboratory Tests 10/10/16 10/11/16 10/11/16 15:56 07:00 07:00 WBC 6.0 RBC 4.38 Hgb 11.7 Hct 35.6 MCV 81.2 MCH 26.8 MCHC 33.0 RDW 12.7 Plt Count 196 MPV 8.0 Sodium 139 Potassium 4.2 Chloride 103 Carbon Dioxide 28 Anion Gap 8 BUN 7 Creatinine 0.7 Creat Clearance w eGFR > 60 Random Glucose 79 Calcium 8.8 Total Bilirubin 0.4 AST 14 L ALT 19 Alkaline Phosphatase 67 Total Protein 6.5 Albumin 3.5 Urine Color Yellow Urine Appearance Cloudy Urine pH 5.0 D Ur Specific [place] 1.025 Urine Protein Negative Urine Glucose (UA) Negative Urine Ketones Negative Urine Blood Negative Urine Nitrite Negative Urine Bilirubin Negative Urine Urobilinogen Negative Ur Leukocyte Esterase 1+ H Urine RBC 1 Urine WBC 6 Ur Epithelial Cells Moderate Urine Mucus Few RPR Titer 10/11/16 07:00 WBC RBC Hgb Hct MCV MCH MCHC RDW Plt Count MPV Sodium Potassium Chloride Carbon Dioxide Anion Gap BUN Creatinine Creat Clearance w eGFR Random Glucose Calcium Total Bilirubin AST ALT Alkaline Phosphatase Total Protein Albumin Urine Color Urine Appearance Urine pH Ur Specific [place] Urine Protein Urine Glucose (UA) Urine Ketones Urine Blood Urine Nitrite Urine Bilirubin Urine Urobilinogen Ur Leukocyte Esterase Urine RBC Urine WBC Ur Epithelial Cells Urine Mucus RPR Titer Nonreactive Pertinent Admission Physical Exam Findings: withdrawal sx - Treatment Hospital Course: Detox Protocol Followed, Detoxed Safely, Responded well, Discharged Condition Good, Rehab Referral Accepted Patient has Accepted a Rehab Referral to: Yes - Medication Discharge Medications: Ambulatory Orders Doxepin HCl [Sinequan -] 50 mg PO HS #30 cap 06/13/16 Gabapentin [Neurontin -] 600 mg PO TID #90 cap 06/13/16 - Diagnosis (1) Cocaine dependence, uncomplicated Current Visit: Yes Status: Chronic (2) MDD (major depressive disorder) Current Visit: Yes Status: Chronic (3) Opioid dependence with withdrawal Current Visit: Yes Status: Chronic (4) Panic disorder Current Visit: Yes Status: Chronic (5) Uncomplicated sedative, hypnotic or anxiolytic withdrawal Current Visit: Yes Status: Suspected (6) Nicotine dependence Current Visit: Yes Status: Acute (7) Substance induced mood disorder Current Visit: Yes Status: Acute - AMA Did Patient Leave Against Medical Advice: No
[2016-10-15] MEDS ORDERED: METHADONE HCL 5 MG TABLET (FOR DETOX USE ONLY) PO SCH (06:00)
[2016-10-15] MEDS ORDERED: METHADONE HCL 5 MG TABLET PO SCH (06:00)
== END 2016-10-14 15:11 | disposition home or self-care (01) | DRG 773 ==
LOC: YASAS 09:47 → Y6N 14:31
PROVIDERS: ADMIT Internal Medicine Addiction Medicine; ATTEND Internal Medicine Addiction Medicine
PROC: HZ2ZZZZ Detoxification Services for Substance Abuse Treatment (ICD-10-PCS; principal; 2016-10-10)
DX: F11.23 Opioid dependence with withdrawal (principal); F13.230 Sedative, hypnotic or anxiolytic dependence with withdrawal, uncomplicated; F14.20 Cocaine dependence, uncomplicated; F17.210 Nicotine dependence, cigarettes, uncomplicated; F33.9 Major depressive disorder, recurrent, unspecified; F41.0 Panic disorder [episodic paroxysmal anxiety]; F19.24 Other psychoactive substance dependence with psychoactive substance-induced mood disorder; F41.8 Other specified anxiety disorders; Z86.69 Personal history of other diseases of the nervous system and sense organs; Z86.2 Personal history of diseases of the blood and blood-forming organs and certain disorders involving the immune mechanism
CPT/HCPCS: 36415; 80053; 81003; 81015; 85027; 86593; 93005; 93010

== ENCOUNTER 2017-12-21 11:30 | Inpatient (IN) | payer BC ==
[2017-12-21 12:00] VITALS: BMI 19.2
--- NOTE | 2017-12-21 14:04 | HP ---
COWS - Scale Resting Pulse: 2= MD 101-120 Sweatin= Chills/Flushing Restless Observation: 1= Difficult to Sit Still Pupil Size: 1= Pupils >than Normal Bone or Joint Aches: 2= Severe Diffuse Aches Runny Nose/ Eye Tearin= Runny Nose/Eyes GI Upset > 30mins: 2= Nausea/Diarrhea Tremor Observation: 2= Slight Tremor Visible Yawning Observation: 1= 1-2x During Session Anxiety or Irritability: 2=Irritable/Anxious Goose Flesh Skin: 0=Smooth Skin COWS Score: 16 CIWA Score Nausea/Vomitin Muscle Tremors: 2 Anxiety: 2 Agitation: 2 Paroxysmal Sweats: 1-Minimal Palms Moist Orientation: 0-Oriented Tacttile Disturbances: 1-Very Mild Itch/Numbness Auditory Disturbances: 1-Very Mild Visual Disturbances: 0-None Headache: 2-Mild CIWA-Ar Total Score: 13 - Admission Criteria [facility]ASAS Guidelines: Admission for Medically Managed Detox: Requires at least one of the followin. CIWA greater than 12 2. Seizures within the past 24 hours 3. Delirium tremens within the past 24 hours 4. Hallucinations within the past 24 hours 5. Acute intervention needed for co occurring medical disorder 6. Acute intervention needed for co occurring psychiatric disorder 7. Severe withdrawal that cannot be handled at a lower level of care (continued vomiting, continued diarrhea, abnormal vital signs) requiring intravenous medication and/or fluids 8. Patient presents the following: CIWA greater than 12 Admission Criteria Met: Admission criteria met Admission ROS [facility] Chief Complaint: i need help to stop using heroin and alcohol Allergies/Adverse Reactions: Allergies Allergy/AdvReac Type Severity Reaction Status Date / Time Fish Containing Products Allergy Severe Swelling Verified 12/21/17 13:46 diphenhydramine AdvReac Intermediate Verified 12/21/17 13:46 [From Benadryl] quetiapine [From Seroquel] AdvReac Intermediate Verified 12/21/17 13:46 History of Present Illness: this 22 years old female with heroin,alcohol and klonopin dependence,seeking detox ,last detox 03/26 [place] weight loss neuropathy post trauma after arrested nicotine dependence anxiety,depression,insomnia longest period of sobriety 8 months - Ebola screening Have you traveled outside of the country in the last 21 days: No Have you had contact with anyone from an Ebola affected area: No Have you been sick,other than usual withdrawal symptoms: No Do you have a fever: No - Review of Systems Constitutional: Chills, Loss of Appetite, Malaise, Night Sweats, Changes in sleep, Weakness, Unintentional Wgt. Loss EENT: reports: Tearing, Nose Congestion Respiratory: reports: No Symptoms reported Cardiac: reports: No Symptoms Reported GI: reports: Constipated, Nausea, Vomiting, Abdominal cramping : reports: No Symptoms Reported Musculoskeletal: reports: Back Pain, Muscle Pain Integumentary: reports: Dryness Neuro: reports: Headache, Tremors Endocrine: reports: No Symptoms Reported Hematology: reports: No Symptoms Reported Psychiatric: reports: No Sypmtoms Reported, Judgement Intact, Mood/Affect Appropiate, Anxious, Depressed Patient History - Patient Medical History Hx Anemia: Yes (IN THE PAST no medication) Hx Asthma: No Hx Chronic Obstructive Pulmonary Disease (COPD): No Hx Cancer: No Hx Cardiac Disorders: No Hx Congestive Heart Failure: No Hx Hypertension: No Hx Hypercholesterolemia: No Hx Pacemaker: No HX Cerebrovascular Accident: No Hx Seizures: No Hx Dementia: No Hx Diabetes: No Hx Gastrointestinal Disorders: No Hx Liver Disease: No Hx Genitourinary Disorders: No Hx Sexually Transmitted Disorders: No Hx Renal Disease (ESRD): No Hx Thyroid Disease: No Hx Human Immunodeficiency Virus (HIV): No (NEGATIVE HX last 03/26 negative) Hx Hepatitis C: No Hx Depression: Yes (panic attack) Hx Suicide Attempt: No Hx Bipolar Disorder: No Hx Schizophrenia: No Other Medical History: no suicidal,no homicidal - Patient Surgical History Past Surgical History: Yes Hx Neurologic Surgery: No Hx Cataract Extraction: No Hx Cardiac Surgery: No Hx Lung Surgery: No Hx Breast Surgery: No Hx Breast Biopsy: No Hx Abdominal Surgery: No Hx Appendectomy: No Hx Cholecystectomy: No Hx Genitourinary Surgery: No Hx Section: No Hx Orthopedic Surgery: No Other Surgical History: bilateral inguinal hernia repair at age 7 Anesthesia Reaction: No - PPD History Previous Implant?: Yes Documented Results: Negative w/o proof Date: 01/06/16 Results: 0 mm PPD to be Administered?: Yes - Reproductive History Patient is a Female of Child Bearing Age (11 -55 yrs old): Yes Last Menstrual Period: 11/02/17 Patient : No - Smoking Cessation Smoking history: Current every day smoker Have you smoked in the past 12 months: Yes Aproximately how many cigarettes per day: 10 If you are a former smoker, when did you quit?: 11 months ago Cigars Per Day: 0 Hx Chewing Tobacco Use: No Initiated information on smoking cessation: Yes 'Breaking Loose' booklet given: 12/21/17 - Substance & Tx. History Hx Alcohol Use: Yes Hx Substance Use: Yes Substance Use Type: Alcohol, Cocaine, Heroin, Tranquilizers - Substances Abused Heroin Route: Injection Frequency: Daily Amount used: 10 bags and up Age of first use: 18 Date of Last Use: 12/21/17 Alcohol Route: Oral Frequency: Daily Amount used: 6pk beer Age of first use: 15 Date of Last Use: 12/21/17 Benzodiazepine (Klonopin) Route: Oral Frequency: 3-6 times per week Amount used: 4 mg Age of first use: 19 Date of Last Use: 12/19/17 Family Disease History - Family Disease History Family Disease History: Other: Grandparent (GF-HIGH CHOLESTEROL), Father ( polysubstance use), Mother (polysubstance use) Admission Physical Exam [facility] - Vital Signs Vital Signs: Vital Signs - 24 hr 12/21/17 11:56 Temperature 96.5 F L Pulse Rate 107 H Respiratory 18 Rate Blood Pressure 112/77 - Physical General Appearance: Yes: Moderate Distress, Tremorous, Irritable, Sweating, Anxious HEENTM: Yes: Normal ENT Inspection, SYMONE, Pharynx Normal Respiratory: Yes: Lungs Clear, Normal Breath Sounds, No Respiratory Distress Neck: Yes: Within Normal Limits, Supple, Trachea in good position Breast: Yes: Breast Exam Deferred Cardiology: Yes: Tachycardia Abdominal: Yes: Within Normal Limits, Normal Bowel Sounds, Non Tender, Flat, Soft Genitourinary: Yes: Within Normal Limits Back: Yes: Muscle Spasm Musculoskeletal: Yes: Back pain, Muscle Pain Extremities: Yes: Normal Range of Motion, Tremors 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, Alert, Motor Strength 5/5, Normal Mood /Affect Integumentary: Yes: Dry Lymphatic: Yes: Within Normal Limits - Diagnostic (1) Cocaine dependence, uncomplicated Current Visit: No Status: Chronic (2) Opioid dependence with withdrawal Current Visit: No Status: Chronic (3) Uncomplicated sedative, hypnotic or anxiolytic withdrawal Current Visit: Yes Status: Acute (4) Alcohol dependence with uncomplicated withdrawal Current Visit: Yes Status: Acute (5) Neuropathy Current Visit: Yes Status: Acute (6) Weight loss Current Visit: Yes Status: Acute (7) Dehydration Current Visit: Yes Status: Acute (8) Nicotine dependence Current Visit: No Status: Acute (9) Anxiety and depression Current Visit: Yes Status: Acute (10) Panic attack Current Visit: Yes Status: Acute Cleared for Admission S - Detox or Rehab [facility] Level of Care: Medically Managed Detox Regimen/Protocol: Methadone/Valium [facility] Breath Alcohol Content Breath Alcohol Content: 0 Urine Pregancy Test - Result Urine Test Results: Negative- NO Line Present Urine Drug Screen - Results Drug Screen Negative: No Urine Drug Screen Results: KAMRAN-Cocaine, OPI-Opiates, BZO-Benzodiazepines, FEN- Fentanyl
[2017-12-21] MEDS ORDERED: MENTHOL/PHENOL 1 EACH UD MM PRN (14:14)
[2017-12-21] MEDS ORDERED: P-EPHED 60MG/TRIPROLIDI 2.5MG TABLET PO PRN (14:14)
[2017-12-21] MEDS ORDERED: guaiFENesin/D-METHORPHAN HB 10 ML UNIT-DOSE CUPS PO PRN (14:14)
[2017-12-21] MEDS ORDERED: MAGNESIUM HYDROX 2400MG/30ML ORAL SUSPENSION 30 ML CUP PO PRN (14:14)
[2017-12-21] MEDS ORDERED: MAGNESIUM CITRATE 300 ML BOTTLE PO PRN (14:14)
[2017-12-21] MEDS ORDERED: IBUPROFEN 400 MG TABLET (FP) PO PRN (14:14)
[2017-12-21] MEDS ORDERED: LOPERAMIDE HCL 2 MG CAPSULE PO PRN (14:14)
[2017-12-21] MEDS ORDERED: MAG HYDROX/AL HYDROX/SIMETH 30 ML UNIT-DOSE CUP PO PRN (14:14)
--- NOTE | 2017-12-21 14:55 | CONSULT ---
[facility] Psychiatric Consult - Data Date of interview: 12/21/17 Admission source: [facility] Identifying data: This is a 22 years old female, single, unemployed, living with family, with no psychiatric hospitalization history, with history of heroin,alcohol and klonopin dependence,seeking detox reporting withdrawal symptoms. ,last detox 03/26 Substance Abuse History: Smoking history: Current every day smoker. Have you smoked in the past 12 months: Yes. Aproximately how many cigarettes per day: 10. If you are a former smoker, when did you quit?: 11 months ago. Cigars Per Day: 0. Hx Chewing Tobacco Use: No. Initiated information on smoking cessation : Yes. 'Breaking Loose' booklet given: 12/21/17. - Substance & Tx. History. Hx Alcohol Use: Yes. Hx Substance Use: Yes. Substance Use Type: Alcohol, Cocaine, Heroin, Tranquilizers Medical History: Weight loss history, Neuropathy, Psychiatric History: Patient reports anxiety and depression episodes, denies taking psychiatric medications, denies psychiatric hospitalization history, denies suicidal, homicidal ideation. Physical/Sexual Abuse/Trauma History: Denies Additional Comment: Obnservation. GabapeOntin 400mg po tid Mental Status Exam - Mental Status Exam Alert and Oriented to: Place, Person Cognitive Function: Fair Patient Appearance: Well Groomed Mood: Anxious Affect: Mood Congruent Patient Behavior: Cooperative Speech Pattern: Appropriate Voice Loudness: Mildly Soft/Quiet Thought Process: Goal Oriented Thought Disorder: Being Controlled Hallucinations: Denies Suicidal Ideation: Denies Homicidal Ideation: Denies Insight/Judgement: Fair Appetite: Weight loss Muscle strength/Tone: Normal Gait/Station: Normal Additional Comments: Obnservation. GabapeOntin 400mg po tid Psychiatric Findings - Problem List ([place] 1, 2,3) (1) Alcohol dependence with uncomplicated withdrawal Current Visit: Yes Status: Acute (2) Anxiety and depression Current Visit: Yes Status: Acute (3) Neuropathy Current Visit: Yes Status: Acute (4) Panic attack Current Visit: Yes Status: Acute (5) Uncomplicated sedative, hypnotic or anxiolytic withdrawal Current Visit: Yes Status: Acute (6) Weight loss Current Visit: Yes Status: Acute (7) Nicotine dependence Current Visit: No Status: Acute (8) Substance induced mood disorder Current Visit: No Status: Acute (9) Cocaine dependence, uncomplicated Current Visit: No Status: Chronic (10) Opioid dependence with withdrawal Current Visit: No Status: Chronic (11) Panic disorder Current Visit: No Status: Chronic Comment: By history. (12) Uncomplicated sedative, hypnotic or anxiolytic withdrawal Current Visit: No Status: Suspected Comment: TOXICOLOGY NEGATIVE - Initial Treatment Plan Initial Treatment Plan: Obnservation. GabapeOntin 400mg po tid
[2017-12-21] MEDS ORDERED: METHADONE HCL 10 MG TABLET (FOR DETOX USE ONLY) PO ONE ×2 (15:00→23:00)
[2017-12-21] MEDS ORDERED: diazePAM 5 MG TABLET PO ONE (15:00)
[2017-12-21] MEDS: NICOTINE 21 MG/24 HOURS TOPICAL PATCH TD SCH (15:57)
[2017-12-21] MEDS: ONDANSETRON *ODT* 4 MG TABLET SL PRN (15:57)
[2017-12-21] MEDS: NICOTINE POLACRILEX 2 MG GUM BUC PRN ×3 (17:56→22:30)
[2017-12-21] MEDS ORDERED: GABAPENTIN 400 MG CAPSULE (FP) PO SCH (22:00)
[2017-12-21 22:11] LABS: URINE APPEARANCE SLCLOUDY; URINE BILIRUBIN NEGATIVE (<2.0 mg/dL); URINE COLOR YELLOW; URINE GLUCOSE (UA) NEGATIVE (NEGATIVE); URINE KETONE NEGATIVE (NEGATIVE); URINE LEUK ESTERASE 2+ (NEGATIVE); URINE NITRITE NEGATIVE (NEGATIVE); URINE PROTEIN NEGATIVE (NEGATIVE); URINE UROBILINOGEN NEGATIVE mg/dL (0.2-1.0)
[2017-12-21 22:23] LABS: EPI CELLS MANY /HPF (FEW); URINE BACTERIA RARE /hpf (NONE SEEN); URINE MUCUS RARE
[2017-12-21] MEDS: GABAPENTIN 400 MG CAPSULE (FP) PO SCH (22:27)
[2017-12-21] MEDS: THIAMINE HCL 100 MG TABLET (FP) PO SCH (22:27)
[2017-12-21] MEDS: MELATONIN 5 MG TABLETS PO PRN (22:28)
[2017-12-21] MEDS: diazePAM 5 MG TABLET PO SCH (22:28)
[2017-12-21] MEDS: ACETAMINOPHEN 325 MG TABLET (FP) PO PRN (22:30)
[2017-12-22] MEDS: GABAPENTIN 400 MG CAPSULE (FP) PO SCH ×3 (05:57→22:18)
[2017-12-22] MEDS: diazePAM 5 MG TABLET PO SCH ×3 (05:58→22:18)
--- NOTE | 2017-12-22 08:55 | EKG ---
Test Reason : Blood Pressure : / mmHG Vent. Rate : 064 BPM Atrial Rate : 064 BPM P-R Int : 130 ms QRS Dur : 094 ms QT Int : 416 ms P-R-T Axes : 037 077 042 degrees QTc Int : 429 ms NORMAL SINUS RHYTHM WITH SINUS ARRHYTHMIA WHEN COMPARED WITH ECG OF 10-OCT-2016 14:20, NO SIGNIFICANT CHANGE WAS FOUND Confirmed by DEMOND COYLE MD ([id number]) on 12/22/2017 8:55:25 AM Referred By: Confirmed By:DEMOND COYLE MD
[2017-12-22] MEDS ORDERED: METHADONE HCL 10 MG TABLET (FOR DETOX USE ONLY) PO SCH (10:00)
[2017-12-22 10:08] LABS: HEMATOCRIT 39.5 % (32.4-45.2); HEMOGLOBIN 12.6 GM/dL (10.7-15.3); MCH 26.1 pg (25.7-33.7); MCHC 31.8 g/dl (32.0-36.0); MEAN CELL VOLUME 82.2 fl (80-96); MEAN PLT VOLUME 8.6 fl (7.5-11.1); PLATELET COUNT 221 K/MM3 (134-434); RBC 4.81 M/mm3 (3.60-5.2); RDW 13.5 % (11.6-15.6); WHITE BLOOD COUNT 6.1 K/mm3 (4.0-10.0)
[2017-12-22] MEDS: PRENATAL VITAMINS W/ FOLIC ACID TABLET (FP) PO SCH (10:19)
[2017-12-22] MEDS: NICOTINE POLACRILEX 2 MG GUM BUC PRN ×3 (10:19→15:31)
[2017-12-22] MEDS: diazePAM 5 MG TABLET PO PRN ×3 (10:19→22:43)
[2017-12-22 10:58] LABS: ALK PHOS 73 U/L (45-117); ANION GAP 7 MMOL/L (8-16); BILIRUBIN,TOTAL 0.6 mg/dL (0.2-1); BLOOD UREA NITROGEN 8 mg/dL (7-18); CHLORIDE 102 mmol/L (98-107); CO2 31 mmol/L (21-32); CREATININE 0.7 mg/dL (0.55-1.3); GLUCOSE,RANDOM 71 mg/dL (74-106); POTASSIUM 4.3 mmol/L (3.5-5.1); SGOT/AST 14 U/L (15-37); SGPT/ALT 17 U/L (13-61); SODIUM 139 mmol/L (136-145); TOT PROT 7.5 g/dl (6.4-8.2)
[2017-12-22] MEDS ORDERED: COLLOIDAL OATMEAL 1 BAR EACH TP PRN (11:33)
--- NOTE | 2017-12-22 11:39 | PN ---
[facility] CIWA - CIWA Score Nausea/Vomitin-No Nausea/No Vomiting Muscle Tremors: 4-Moderate,w/Arms Extend Anxiety: 3 Agitation: 3 Paroxysmal Sweats: 3 Orientation: 0-Oriented Tacttile Disturbances: 0-None Auditory Disturbances: 0-None Visual Disturbances: 0-None Headache: 0-None Present CIWA-Ar Total Score: 13 BHS COWS - Scale Resting Pulse: 1= SC 81-100 Sweatin= Chills/Flushing Restless Observation: 1= Difficult to Sit Still Pupil Size: 0= Normal to Room Light Bone or Joint Aches: 2= Severe Diffuse Aches Runny Nose/ Eye Tearin= Runny Nose/Eyes GI Upset > 30mins: 1= Stomach Cramp Tremor Observation of Outstretched Hands: 2= Slight Tremor Visible Yawning Observation: 2= >3x During Session Anxiety or Irritability: 2=Irritable/Anxious Goose Flesh Skin: 3=Piloerection COWS Score: 17 S Progress Note (SOAP) Subjective: chills sweats interrupted sleep agitation anxiety body aches irritable restless dry skin i need aveeno soap Objective: 12/22/17 11:37 Vital Signs Temperature 98.2 F 12/22/17 09:37 Pulse Rate 95 H 12/22/17 09:37 Respiratory Rate 18 12/22/17 09:37 Blood Pressure 99/73 12/22/17 09:37 O2 Sat by Pulse Oximetry (%) Laboratory Tests 12/21/17 12/22/17 12/22/17 15:24 06:30 06:30 WBC 6.1 RBC 4.81 Hgb 12.6 Hct 39.5 MCV 82.2 MCH 26.1 MCHC 31.8 L RDW 13.5 Plt Count 221 MPV 8.6 Sodium 139 Potassium 4.3 Chloride 102 Carbon Dioxide 31 Anion Gap 7 L BUN 8 Creatinine 0.7 Creat Clearance w eGFR > 60 Random Glucose 71 L Calcium 9.0 Total Bilirubin 0.6 AST 14 L ALT 17 Alkaline Phosphatase 73 Total Protein 7.5 Albumin 4.0 Urine Color Yellow Urine Appearance Slcloudy Urine pH 6.0 Ur Specific [place] 1.017 Urine Protein Negative Urine Glucose (UA) Negative Urine Ketones Negative Urine Blood Negative Urine Nitrite Negative Urine Bilirubin Negative Urine Urobilinogen Negative Ur Leukocyte Esterase 2+ H Urine WBC (Auto) 8 Urine RBC (Auto) 1 Ur Epithelial Cells Many Urine Bacteria Rare Urine Mucus Rare aaox3 ambulating no acute distress Assessment: 12/22/17 11:38 withdrawal sx Plan: continue detox increase fluids aveeno soap
[2017-12-22] MEDS: NICOTINE 21 MG/24 HOURS TOPICAL PATCH TD SCH (11:40)
[2017-12-22] MEDS: THIAMINE HCL 100 MG TABLET (FP) PO SCH (22:18)
[2017-12-22] MEDS: MELATONIN 5 MG TABLETS PO PRN (22:19)
[2017-12-23] MEDS: diazePAM 5 MG TABLET PO PRN ×3 (05:36→17:41)
[2017-12-23] MEDS: GABAPENTIN 400 MG CAPSULE (FP) PO SCH ×3 (05:36→22:14)
[2017-12-23] MEDS: METHADONE HCL 5 MG TABLET (FOR DETOX USE ONLY) PO SCH (10:12)
[2017-12-23] MEDS: PRENATAL VITAMINS W/ FOLIC ACID TABLET (FP) PO SCH (10:12)
[2017-12-23] MEDS: diazePAM 5 MG TABLET PO SCH ×2 (10:12→22:14)
[2017-12-23] MEDS: NICOTINE 21 MG/24 HOURS TOPICAL PATCH TD SCH (10:12)
[2017-12-23] MEDS: NICOTINE POLACRILEX 2 MG GUM BUC PRN (10:12)
[2017-12-23] MEDS ORDERED: hydrOXYzine PAMOATE 50 MG CAPSULE (FP) PO PRN (12:08)
--- NOTE | 2017-12-23 12:15 | PN ---
[facility] CIWA - CIWA Score Nausea/Vomitin Muscle Tremors: 2 Anxiety: 3 Agitation: 3 Paroxysmal Sweats: 2 Orientation: 0-Oriented Tacttile Disturbances: 1-Very Mild Itch/Numbness Auditory Disturbances: 0-None Visual Disturbances: 0-None Headache: 1-Very Mild CIWA-Ar Total Score: 14 BHS COWS - Scale Resting Pulse: 1= [place] 81-100 Sweatin= Chills/Flushing Restless Observation: 3= Extraneous Movement Pupil Size: 0= Normal to Room Light Bone or Joint Aches: 1= Mild Discomfort Runny Nose/ Eye Tearin= Runny Nose/Eyes GI Upset > 30mins: 2= Nausea/Diarrhea Tremor Observation of Outstretched Hands: 2= Slight Tremor Visible Yawning Observation: 1= 1-2x During Session Anxiety or Irritability: 2=Irritable/Anxious Goose Flesh Skin: 3=Piloerection COWS Score: 18 S Progress Note (SOAP) Subjective: Generalized pain, abdominal cramps,chills, anxiety, restlessness and interrupted sleep Objective: 12/23/17 12:12 Vital Signs 12/23/17 12/23/17 06:00 09:38 Temperature 97.7 F 98.4 F Pulse Rate 99 H 112 H Respiratory 16 18 Rate Blood Pressure 101/75 99/61 Laboratory Last Values WBC 6.1 K/mm3 (4.0-10.0) 12/22/17 06:30 RBC 4.81 M/mm3 (3.60-5.2) 12/22/17 06:30 Hgb 12.6 GM/dL (10.7-15.3) 12/22/17 06:30 Hct 39.5 % (32.4-45.2) 12/22/17 06:30 MCV 82.2 fl (80-96) 12/22/17 06:30 MCH 26.1 pg (25.7-33.7) 12/22/17 06:30 MCHC 31.8 g/dl (32.0-36.0) L 12/22/17 06:30 RDW 13.5 % (11.6-15.6) 12/22/17 06:30 Plt Count 221 K/MM3 (134-434) 12/22/17 06:30 MPV 8.6 fl (7.5-11.1) 12/22/17 06:30 Sodium 139 mmol/L (136-145) 12/22/17 06:30 Potassium 4.3 mmol/L (3.5-5.1) 12/22/17 06:30 Chloride 102 mmol/L (98-107) 12/22/17 06:30 Carbon Dioxide 31 mmol/L (21-32) 12/22/17 06:30 Anion Gap 7 MMOL/L (8-16) L 12/22/17 06:30 BUN 8 mg/dL (7-18) 12/22/17 06:30 Creatinine 0.7 mg/dL (0.55-1.3) 12/22/17 06:30 Creat Clearance w eGFR > 60 (>60) 12/22/17 06:30 Random Glucose 71 mg/dL (74-106) L 12/22/17 06:30 Calcium 9.0 mg/dL (8.5-10.1) 12/22/17 06:30 Total Bilirubin 0.6 mg/dL (0.2-1) 12/22/17 06:30 AST 14 U/L (15-37) L 12/22/17 06:30 ALT 17 U/L (13-61) 12/22/17 06:30 Alkaline Phosphatase 73 U/L (45-117) 12/22/17 06:30 Total Protein 7.5 g/dl (6.4-8.2) 12/22/17 06:30 Albumin 4.0 g/dl (3.4-5.0) 12/22/17 06:30 Urine Color Yellow 12/21/17 15:24 Urine Appearance Slcloudy 12/21/17 15:24 Urine pH 6.0 (5.0-8.0) 12/21/17 15:24 Ur Specific [place] 1.017 (1.010-1.035) 12/21/17 15:24 Urine Protein Negative (NEGATIVE) 12/21/17 15:24 Urine Glucose (UA) Negative (NEGATIVE) 12/21/17 15:24 Urine Ketones Negative (NEGATIVE) 12/21/17 15:24 Urine Blood Negative (NEGATIVE) 12/21/17 15:24 Urine Nitrite Negative (NEGATIVE) 12/21/17 15:24 Urine Bilirubin Negative (<2.0 mg/dL) 12/21/17 15:24 Urine Urobilinogen Negative mg/dL (0.2-1.0) 12/21/17 15:24 Ur Leukocyte Esterase 2+ (NEGATIVE) H 12/21/17 15:24 Urine WBC (Auto) 8 /hpf (3-5) 12/21/17 15:24 Urine RBC (Auto) 1 /hpf (0-3) 12/21/17 15:24 Ur Epithelial Cells Many /HPF (FEW) 12/21/17 15:24 Urine Bacteria Rare /hpf (NONE SEEN) 12/21/17 15:24 Urine Mucus Rare 12/21/17 15:24 RPR Titer Nonreactive (NONREACTIVE) 12/22/17 06:30 Labs noted Patient very anxious and restless, requesting clonidine for anxiety, she reports previous detox was given same and it worked Assessment: 12/23/17 12:13 Withdrawal sx Generalized anxiety Plan: Continue detox Start hydroxizine 50mg Q 6hrs as needed, clonidine not appropriate due to BP ranges
--- NOTE | 2017-12-23 12:52 | PN ---
[facility] Progress Note Note: Hydroxyzine discontinued due to allergy profile.
[2017-12-23] MEDS ORDERED: hydrOXYzine PAMOATE 25 MG CAPSULE (FP) PO PRN (18:37)
--- NOTE | 2017-12-23 18:44 | PN ---
[facility] Progress Note Note: C/o hot/cold sweats, anxious Sleep disturbance Vistaril 25mg PRN ordered for pt's agitation/anxiety. Ongoing clinical monitoring
[2017-12-23] MEDS: THIAMINE HCL 100 MG TABLET (FP) PO SCH (22:14)
[2017-12-23] MEDS: MELATONIN 5 MG TABLETS PO PRN (22:14)
[2017-12-24] MEDS: CYCLOBENZAPRINE HCL 5 MG TABLET PO PRN ×2 (01:48→22:14)
[2017-12-24] MEDS: diazePAM 5 MG TABLET PO PRN (01:48)
[2017-12-24] MEDS: GABAPENTIN 400 MG CAPSULE (FP) PO SCH ×3 (05:41→22:14)
[2017-12-24] MEDS: NICOTINE 21 MG/24 HOURS TOPICAL PATCH TD SCH (10:49)
[2017-12-24] MEDS: PRENATAL VITAMINS W/ FOLIC ACID TABLET (FP) PO SCH (10:49)
[2017-12-24] MEDS: diazePAM 5 MG TABLET PO SCH ×2 (10:49→22:14)
[2017-12-24] MEDS: METHADONE HCL 5 MG TABLET (FOR DETOX USE ONLY) PO SCH (10:49)
[2017-12-24] MEDS: NICOTINE POLACRILEX 2 MG GUM BUC PRN ×2 (10:52→16:45)
--- NOTE | 2017-12-24 11:24 | PN ---
S Progress Note Note: Patient complains of feeling anxious and sleeping poorly despite taking Vistaril 25 mg po Q 4hrs prn for anxiet and Melatonin 5 mg po HS prn for insomnia. She requests that both Vistoril and Melatonin dosage be increased. So Vistaril is increased to 50 mg po Qc 4 hrs prn for anxiety and Melatonin 10 mg po HS prn for insomnia
--- NOTE | 2017-12-24 13:07 | PN ---
[facility] Progress Note (SOAP) Subjective: anxiety tremor restlessness sweat hot and cold muscle cramp patient demands up valium dosage for anxiety "you can not kandy me off valium" patient requests that she has anxiety disorder and need valium around the clock discuss alternative of mindfulness anxiety therapies ap 86 bp 117/73 skin warm dry smooth Objective: 12/24/17 13:09 Vital Signs Temperature 97.7 F 12/24/17 10:17 Pulse Rate 86 12/24/17 10:17 Respiratory Rate 16 12/24/17 10:17 Blood Pressure 117/73 12/24/17 10:17 O2 Sat by Pulse Oximetry (%) Laboratory Last Values WBC 6.1 K/mm3 (4.0-10.0) 12/22/17 06:30 RBC 4.81 M/mm3 (3.60-5.2) 12/22/17 06:30 Hgb 12.6 GM/dL (10.7-15.3) 12/22/17 06:30 Hct 39.5 % (32.4-45.2) 12/22/17 06:30 MCV 82.2 fl (80-96) 12/22/17 06:30 MCH 26.1 pg (25.7-33.7) 12/22/17 06:30 MCHC 31.8 g/dl (32.0-36.0) L 12/22/17 06:30 RDW 13.5 % (11.6-15.6) 12/22/17 06:30 Plt Count 221 K/MM3 (134-434) 12/22/17 06:30 MPV 8.6 fl (7.5-11.1) 12/22/17 06:30 Sodium 139 mmol/L (136-145) 12/22/17 06:30 Potassium 4.3 mmol/L (3.5-5.1) 12/22/17 06:30 Chloride 102 mmol/L (98-107) 12/22/17 06:30 Carbon Dioxide 31 mmol/L (21-32) 12/22/17 06:30 Anion Gap 7 MMOL/L (8-16) L 12/22/17 06:30 BUN 8 mg/dL (7-18) 12/22/17 06:30 Creatinine 0.7 mg/dL (0.55-1.3) 12/22/17 06:30 Creat Clearance w eGFR > 60 (>60) 12/22/17 06:30 Random Glucose 71 mg/dL (74-106) L 12/22/17 06:30 Calcium 9.0 mg/dL (8.5-10.1) 12/22/17 06:30 Total Bilirubin 0.6 mg/dL (0.2-1) 12/22/17 06:30 AST 14 U/L (15-37) L 12/22/17 06:30 ALT 17 U/L (13-61) 12/22/17 06:30 Alkaline Phosphatase 73 U/L (45-117) 12/22/17 06:30 Total Protein 7.5 g/dl (6.4-8.2) 12/22/17 06:30 Albumin 4.0 g/dl (3.4-5.0) 12/22/17 06:30 Urine Color Yellow 12/21/17 15:24 Urine Appearance Slcloudy 12/21/17 15:24 Urine pH 6.0 (5.0-8.0) 12/21/17 15:24 Ur Specific [place] 1.017 (1.010-1.035) 12/21/17 15:24 Urine Protein Negative (NEGATIVE) 12/21/17 15:24 Urine Glucose (UA) Negative (NEGATIVE) 12/21/17 15:24 Urine Ketones Negative (NEGATIVE) 12/21/17 15:24 Urine Blood Negative (NEGATIVE) 12/21/17 15:24 Urine Nitrite Negative (NEGATIVE) 12/21/17 15:24 Urine Bilirubin Negative (<2.0 mg/dL) 12/21/17 15:24 Urine Urobilinogen Negative mg/dL (0.2-1.0) 12/21/17 15:24 Ur Leukocyte Esterase 2+ (NEGATIVE) H 12/21/17 15:24 Urine WBC (Auto) 8 /hpf (3-5) 12/21/17 15:24 Urine RBC (Auto) 1 /hpf (0-3) 12/21/17 15:24 Ur Epithelial Cells Many /HPF (FEW) 12/21/17 15:24 Urine Bacteria Rare /hpf (NONE SEEN) 12/21/17 15:24 Urine Mucus Rare 12/21/17 15:24 RPR Titer Nonreactive (NONREACTIVE) 12/22/17 06:30 lab noted Assessment: 12/24/17 13:09 withdrawal sx encourage the nurse offer flexeril prn for muscle cramp Plan: continue detox
[2017-12-24] MEDS: hydrOXYzine PAMOATE 50 MG CAPSULE (FP) PO PRN (14:28)
[2017-12-24] MEDS: ACETAMINOPHEN 325 MG TABLET (FP) PO PRN (17:38)
[2017-12-24] MEDS: THIAMINE HCL 100 MG TABLET (FP) PO SCH (22:13)
[2017-12-24] MEDS: MELATONIN 5 MG TABLETS PO PRN (22:15)
[2017-12-25] MEDS: CYCLOBENZAPRINE HCL 5 MG TABLET PO PRN ×3 (04:28→22:35)
[2017-12-25] MEDS: GABAPENTIN 400 MG CAPSULE (FP) PO SCH ×3 (06:37→22:32)
--- NOTE | 2017-12-25 09:51 | PN ---
[facility] Progress Note (SOAP) Subjective: sweats body aches restless Objective: 12/25/17 09:51 Vital Signs Temperature 97.7 F 12/25/17 09:29 Pulse Rate 94 H 12/25/17 09:29 Respiratory Rate 16 12/25/17 09:29 Blood Pressure 100/63 12/25/17 09:29 O2 Sat by Pulse Oximetry (%) aaox3 ambulating no acute distress Assessment: 12/25/17 09:51 withdrawal sx Plan: continue detox increase fluids d/c in am
[2017-12-25] MEDS: PRENATAL VITAMINS W/ FOLIC ACID TABLET (FP) PO SCH (10:00)
[2017-12-25] MEDS ORDERED: diazePAM 5 MG TABLET PO SCH (10:00)
[2017-12-25] MEDS: ACETAMINOPHEN 325 MG TABLET (FP) PO PRN ×2 (10:00→19:10)
[2017-12-25] MEDS ORDERED: METHADONE HCL 10 MG TABLET (FOR DETOX USE ONLY) PO SCH (10:00)
[2017-12-25] MEDS: ONDANSETRON *ODT* 4 MG TABLET SL PRN (10:04)
[2017-12-25] MEDS: NICOTINE 21 MG/24 HOURS TOPICAL PATCH TD SCH (10:50)
[2017-12-25] MEDS: NICOTINE POLACRILEX 2 MG GUM BUC PRN (10:53)
[2017-12-25] MEDS ORDERED: NICOTINE POLACRILEX 4 MG GUM BUC PRN (11:05)
[2017-12-25] MEDS: hydrOXYzine PAMOATE 50 MG CAPSULE (FP) PO PRN (14:07)
[2017-12-25] MEDS: THIAMINE HCL 100 MG TABLET (FP) PO SCH (22:32)
[2017-12-25] MEDS: MELATONIN 5 MG TABLETS PO PRN (22:33)
[2017-12-26] MEDS ORDERED: METHADONE HCL 5 MG TABLET (FOR DETOX USE ONLY) PO SCH (06:00)
[2017-12-26] MEDS: GABAPENTIN 400 MG CAPSULE (FP) PO SCH (06:58)
[2017-12-26 09:32] VITALS: BP 109/74; PULSE 116; TEMP 97.2
[2017-12-26] MEDS: PRENATAL VITAMINS W/ FOLIC ACID TABLET (FP) PO SCH (09:38)
[2017-12-26] MEDS: CYCLOBENZAPRINE HCL 5 MG TABLET PO PRN (09:38)
--- NOTE | 2017-12-26 11:46 | DS ---
[facility] Detox Discharge Summary Admission Date: 12/21/17 Discharge Date: 12/26/17 - History Present History: Alcohol Dependence, Opioid Dependence, Sedative Dependence Additional Comments: 22 years old female admitted on 12/21/17 for alcohol benzo opiate withdrawal sx completed detox regimen tolerated well denies withdrawal sx alert oriented x 3 no acute distress aftercare [facility] - Physical Exam Results Vital Signs: Vital Signs Temperature 97.2 F L 12/26/17 09:31 Pulse Rate 116 H 12/26/17 09:31 Respiratory Rate 16 12/26/17 09:31 Blood Pressure 109/74 12/26/17 09:31 O2 Sat by Pulse Oximetry (%) Pertinent Admission Physical Exam Findings: alcohol benzo opiate withdrawal sx Vital Signs Temperature 97.2 F L 12/26/17 09:31 Pulse Rate 116 H 12/26/17 09:31 Respiratory Rate 16 12/26/17 09:31 Blood Pressure 109/74 12/26/17 09:31 O2 Sat by Pulse Oximetry (%) Laboratory Last Values WBC 6.1 K/mm3 (4.0-10.0) 12/22/17 06:30 RBC 4.81 M/mm3 (3.60-5.2) 12/22/17 06:30 Hgb 12.6 GM/dL (10.7-15.3) 12/22/17 06:30 Hct 39.5 % (32.4-45.2) 12/22/17 06:30 MCV 82.2 fl (80-96) 12/22/17 06:30 MCH 26.1 pg (25.7-33.7) 12/22/17 06:30 MCHC 31.8 g/dl (32.0-36.0) L 12/22/17 06:30 RDW 13.5 % (11.6-15.6) 12/22/17 06:30 Plt Count 221 K/MM3 (134-434) 12/22/17 06:30 MPV 8.6 fl (7.5-11.1) 12/22/17 06:30 Sodium 139 mmol/L (136-145) 12/22/17 06:30 Potassium 4.3 mmol/L (3.5-5.1) 12/22/17 06:30 Chloride 102 mmol/L (98-107) 12/22/17 06:30 Carbon Dioxide 31 mmol/L (21-32) 12/22/17 06:30 Anion Gap 7 MMOL/L (8-16) L 12/22/17 06:30 BUN 8 mg/dL (7-18) 12/22/17 06:30 Creatinine 0.7 mg/dL (0.55-1.3) 12/22/17 06:30 Creat Clearance w eGFR > 60 (>60) 12/22/17 06:30 Random Glucose 71 mg/dL (74-106) L 12/22/17 06:30 Calcium 9.0 mg/dL (8.5-10.1) 12/22/17 06:30 Total Bilirubin 0.6 mg/dL (0.2-1) 12/22/17 06:30 AST 14 U/L (15-37) L 12/22/17 06:30 ALT 17 U/L (13-61) 12/22/17 06:30 Alkaline Phosphatase 73 U/L (45-117) 12/22/17 06:30 Total Protein 7.5 g/dl (6.4-8.2) 12/22/17 06:30 Albumin 4.0 g/dl (3.4-5.0) 12/22/17 06:30 Urine Color Yellow 12/21/17 15:24 Urine Appearance Slcloudy 12/21/17 15:24 Urine pH 6.0 (5.0-8.0) 12/21/17 15:24 Ur Specific [place] 1.017 (1.010-1.035) 12/21/17 15:24 Urine Protein Negative (NEGATIVE) 12/21/17 15:24 Urine Glucose (UA) Negative (NEGATIVE) 12/21/17 15:24 Urine Ketones Negative (NEGATIVE) 12/21/17 15:24 Urine Blood Negative (NEGATIVE) 12/21/17 15:24 Urine Nitrite Negative (NEGATIVE) 12/21/17 15:24 Urine Bilirubin Negative (<2.0 mg/dL) 12/21/17 15:24 Urine Urobilinogen Negative mg/dL (0.2-1.0) 12/21/17 15:24 Ur Leukocyte Esterase 2+ (NEGATIVE) H 12/21/17 15:24 Urine WBC (Auto) 8 /hpf (3-5) 12/21/17 15:24 Urine RBC (Auto) 1 /hpf (0-3) 12/21/17 15:24 Ur Epithelial Cells Many /HPF (FEW) 12/21/17 15:24 Urine Bacteria Rare /hpf (NONE SEEN) 12/21/17 15:24 Urine Mucus Rare 12/21/17 15:24 RPR Titer Nonreactive (NONREACTIVE) 12/22/17 06:30 lab noted - Treatment Hospital Course: Detox Protocol Followed, Detoxed Safely, Responded well, Discharged Condition Good, Rehab Referral Accepted Patient has Accepted a Rehab Referral to: [facility] - Medication Discharge Medications: Ambulatory Orders Gabapentin [Neurontin -] 400 mg PO TID 12/21/17 - Diagnosis (1) Weight loss Current Visit: Yes Status: Acute (2) Alcohol dependence with uncomplicated withdrawal Current Visit: Yes Status: Acute (3) Opioid dependence with withdrawal Current Visit: Yes Status: Acute (4) Uncomplicated sedative, hypnotic or anxiolytic withdrawal Current Visit: Yes Status: Acute (5) Nicotine dependence Current Visit: No Status: Acute Qualifiers: Nicotine product type: cigarettes Substance use status: in withdrawal Qualified Code(s): F17.213 - Nicotine dependence, cigarettes, with withdrawal - AMA Did Patient Leave Against Medical Advice: No
== END 2017-12-26 09:37 | disposition home or self-care (01) | DRG 754 ==
LOC: YASAS 11:30 → Y6N 14:37
PROC: HZ2ZZZZ Detoxification Services for Substance Abuse Treatment (ICD-10-PCS; principal; 2017-12-21)
DX: F32.9 Major depressive disorder, single episode, unspecified (principal); F11.23 Opioid dependence with withdrawal; F10.230 Alcohol dependence with withdrawal, uncomplicated; F13.230 Sedative, hypnotic or anxiolytic dependence with withdrawal, uncomplicated; F14.20 Cocaine dependence, uncomplicated; F17.213 Nicotine dependence, cigarettes, with withdrawal; F33.9 Major depressive disorder, recurrent, unspecified; F41.0 Panic disorder [episodic paroxysmal anxiety]; F41.9 Anxiety disorder, unspecified; F19.24 Other psychoactive substance dependence with psychoactive substance-induced mood disorder; E86.0 Dehydration; G62.9 Polyneuropathy, unspecified; R63.4 Abnormal weight loss; Z68.1 Body mass index [BMI] 19.9 or less, adult
CPT/HCPCS: 36415; 80053; 81003; 81015; 85027; 86593; 93005; 93010; Q0162